=== PATIENT | female | born 1990 | race Caucasian/White ===

== ENCOUNTER 2016-09-30 06:37 | Emergency (ER) | payer BC, MEDICAID ==
[2016-09-30 06:46] VITALS: TEMP 98
[2016-09-30] MEDS ORDERED: predniSONE 50 MG TAB PO STA (07:25)
[2016-09-30] MEDS ORDERED: diphenhydrAMINE 50 MG/ML 1 ML VIAL IM STA (07:28)
--- NOTE | 2016-09-30 07:28 | ED ---
General Adult HPI - General Chief complaint: Skin/Abscess/Foreign Body Stated complaint: poss allergic reaction Time Seen by Provider: 09/30/16 07:00 Source: patient, RN notes reviewed Mode of arrival: ambulatory Limitations: no limitations - History of Present Illness Initial comments: This is a 26 year old female who presents emergency Department with a rash all over her legs abdomen chest back and even her scalp. Patient has no rash on her palms or soles. Patient states the rash is extremely itchy the rash is erythematous and mildly raised. Patient states she did not started any new medications or any new soaps or lotions or shampoos. Patient states she does not know where it could've come from one else in the house has. Patient states she's never had in the past per patient denies any fever or chills. - Related Data Previous Rx's Medication Instructions Recorded predniSONE 40 mg PO DAILY #8 tab 09/30/16 Allergies Allergy/AdvReac Type Severity Reaction Status Date / Time No Known Allergies Allergy Verified 09/30/16 06:46 Review of Systems ROS Statement: Those systems with pertinent positive or pertinent negative responses have been documented in the HPI. ROS Other: All systems not noted in ROS Statement are negative. Past Medical History Past Medical History: No Reported History History of Any Multi-Drug Resistant Organisms: None Reported Past Surgical History: Adenoidectomy, Ear Surgery Additional Past Surgical History / Comment(s): toe Past Psychological History: No Psychological Hx Reported Smoking Status: Never smoker Past Alcohol Use History: Rare Past Drug Use History: None Reported General Exam - General Exam Comments Initial Comments: GENERAL: Patient is well-developed and well-nourished. Patient is nontoxic and well- hydrated and is in mild distress. ENT: Neck is soft and supple. No significant lymphadenopathy is noted. Oropharynx is clear. Moist mucous membranes. Neck has full range of motion without eliciting any pain. EYES: The sclera were anicteric and conjunctiva were pink and moist. Extraocular movements were intact and pupils were equal round and reactive to light. Eyelids were unremarkable. PULMONARY: Unlabored respirations. Good breath sounds bilaterally. No audible rales rhonchi or wheezing was noted. CARDIOVASCULAR: There is a regular rate and rhythm without any murmurs gallops or rubs. ABDOMEN: Soft and nontender with normal bowel sounds. No palpable organomegaly was noted. There is no palpable pulsatile mass. SKIN: Patient has multiple solitary erythematous lesions that are slightly raised there are no pustules NEUROLOGIC: Patient is alert and oriented x3. Cranial nerves II through XII are grossly intact. Motor and sensory are also intact. Normal speech, volume and content. Symmetrical smile. MUSCULOSKELETAL: Normal extremities with adequate strength and full range of motion. No lower extremity swelling or edema. No calf tenderness. LYMPHATICS: No significant lymphadenopathy is noted PSYCHIATRIC: Normal psychiatric evaluation. Normal interpersonal interactions appears functionally intact in deals appropriately with others. No signs of depression. No signs of anxiety. Limitations: no limitations Course Vital Signs 09/30/16 06:43 Temperature 98.0 F Pulse Rate 93 Respiratory 18 Rate Blood Pressure 140/77 O2 Sat by Pulse 97 Oximetry Disposition Clinical Impression: Allergic reaction Disposition: HOME SELF-CARE Condition: Good Instructions: Allergies (ED) Prescriptions: predniSONE 40 mg PO DAILY #8 tab Referrals: Christelle Eldridge MD [Primary Care Provider] - 1-2 days
[2016-09-30 07:53] VITALS: BP 115/61; PULSE 71; RESP 16
== END 2016-09-30 07:56 | disposition home or self-care (01) ==
LOC: EC 06:37
DX: T78.40XA Allergy, unspecified, initial encounter (principal)
CPT/HCPCS: 99282; J7512

== ENCOUNTER → 2017-01-13 | Outpatient (CLI) | payer MEDICAID ==
--- NOTE | 2017-01-13 16:10 | US ---
EXAMINATION TYPE: US thyroid st tissue head/neck DATE OF EXAM: 01/13/2017 COMPARISON: NONE CLINICAL HISTORY: 26-year-old female Thyromegaly E01.0. Weight gain, neck swelling TECHNIQUE: Multiple sonographic images of the thyroid gland are obtained. FINDINGS: GLAND SIZE: Right Lobe: 5.2 x 1.4 x 1.9 cm Left Lobe: 5.7 x 1.2 x 1.7 cm Isthmus Thickness: 0.2 cm Overall homogeneous glandular parenchyma. NODULES RIGHT: # of nodules measured on right: 0 LEFT: # of nodules measured on left: 1 1. 1.2 X 0.7 x 0.9 cm solid ovoid nodule at the lower pole. This nodule is wider than tall and show s intranodular vascularity. Prior size: no previous ISTHMUS: # of nodules measured in the isthmus: 0 Bilateral neck scanned, no evidence of lymphadenopathy. IMPRESSION: 1. Thyromegaly. 2. Solitary 1.2 cm solid nodule in the left lower pole.
== END | disposition home or self-care (01) ==
LOC: RADUSWWP 15:00
PROVIDERS: ATTEND Internal Medicine
DX: E04.1 Nontoxic single thyroid nodule (principal)
CPT/HCPCS: 76536

== ENCOUNTER 2017-03-21 04:18 | Emergency (ER) | payer MEDICAID ==
[2017-03-21 04:29] VITALS: BP 126/70; PULSE 90; RESP 17; TEMP 97.6
[2017-03-21] MEDS ORDERED: IBUPROFEN 400 MG TAB PO STA (05:36)
[2017-03-21] MEDS ORDERED: PSEUDOEPHEDRINE 12HR 120 MG TABLET.ER PO STA (05:36)
[2017-03-21] MEDS ORDERED: Acetaminophen-Codeine 300-30mg TAB PO STA (05:39)
--- NOTE | 2017-03-21 05:53 | ED ---
ENT HPI - General Chief complaint: ENT Stated complaint: Lt Ear Pain Time Seen by Provider: 03/21/17 05:32 Source: patient Mode of arrival: ambulatory Limitations: no limitations - History of Present Illness Initial comments: This patient is a 26-year-old woman who presents to be evaluated for left ear pain. The patient states that she has had a few days of cough and congestion, and then was awakened around 3 AM by left ear pain. She describes it as constant, severe, aching, and she has not noted worsening or relieving factors. She has history of having tubes placed 3 or 4 times previously when she was younger. Patient denies fever, ear drainage, loss of hearing, headache or other symptoms. MD complaint: ear pain Onset/Timin -: hour(s) Location: L ear Severity: severe Quality: aching Consistency: constant Improves with: none Worsens with: none Associated Symptoms: cough - Related Data Home Medications Medication Instructions Recorded Confirmed Shreds Fat Burner 1 tab PO DAILY 09/30/16 09/30/16 Previous Rx's Medication Instructions Recorded predniSONE 40 mg PO DAILY #8 tab 09/30/16 Amoxicillin 875 mg PO Q12HR #14 tablet 03/21/17 Pseudoephedrine 12Hr [Sudafed 12 120 mg PO Q12H #14 tablet.er 03/21/17 Hour] Allergies Allergy/AdvReac Type Severity Reaction Status Date / Time No Known Allergies Allergy Verified 09/30/16 07:32 Review of Systems ROS Statement: Those systems with pertinent positive or pertinent negative responses have been documented in the HPI. ROS Other: All systems not noted in ROS Statement are negative. Constitutional: Denies: fever, chills Eyes: Denies: eye pain ENT: Reports: ear pain, congestion. Denies: throat pain, dental pain, hearing loss Respiratory: Reports: cough. Denies: dyspnea, wheezes Cardiovascular: Denies: chest pain Skin: Denies: rash Neurological: Denies: headache Past Medical History Past Medical History: No Reported History History of Any Multi-Drug Resistant Organisms: None Reported Past Surgical History: Adenoidectomy, Ear Surgery Additional Past Surgical History / Comment(s): toe Past Psychological History: No Psychological Hx Reported Smoking Status: Never smoker Past Alcohol Use History: Rare Past Drug Use History: None Reported General Exam Limitations: no limitations General appearance: alert, in no apparent distress Head exam: Present: atraumatic, normocephalic Eye exam: Present: normal appearance, PERRL, EOMI. Absent: scleral icterus, conjunctival injection ENT exam: Present: normal oropharynx, mucous membranes moist, normal external ear exam. Absent: TM's normal bilaterally (There is a clear effusion behind the left tympanic membrane, which is mildly injected.) Neck exam: Present: normal inspection, full ROM, lymphadenopathy. Absent: tenderness, meningismus Respiratory exam: Present: normal lung sounds bilaterally. Absent: respiratory distress, wheezes, rales, rhonchi Neurological exam: Present: alert Skin exam: Present: warm, dry, intact, normal color. Absent: rash Course Vital Signs 03/21/17 04:24 Temperature 97.6 F Pulse Rate 90 Respiratory 17 Rate Blood Pressure 126/70 O2 Sat by Pulse 100 Oximetry Disposition Clinical Impression: Otitis media Disposition: HOME SELF-CARE Condition: Good Instructions: Earache (ED) Prescriptions: Amoxicillin 875 mg PO Q12HR #14 tablet Pseudoephedrine 12Hr [Sudafed 12 Hour] 120 mg PO Q12H #14 tablet.er Referrals: Christelle Eldridge MD [Primary Care Provider] - 1-2 days
== END 2017-03-21 06:16 | disposition home or self-care (01) ==
LOC: EC 04:18
DX: H66.92 Otitis media, unspecified, left ear (principal); R05 Cough; Z79.899 Other long term (current) drug therapy
CPT/HCPCS: 99282

== ENCOUNTER 2018-07-05 08:10 | Emergency (ER) | payer MEDICAID ==
[2018-07-05] MEDS ORDERED: SODIUM CHLORIDE 0.9% 1,000 ML IV STA ×3 (08:24→10:53)
[2018-07-05] MEDS ORDERED: ONDANSETRON 4 MG/2 ML VIAL IVP STA ×2 (08:24→10:42)
[2018-07-05] MEDS ORDERED: KETOROLAC 30 MG/ML 1 ML VIAL IVP STA ×2 (08:25→14:25)
--- NOTE | 2018-07-05 08:44 | ED ---
Nausea/Vomiting/Diarrhea HPI - General Chief complaint: Nausea/Vomiting/Diarrhea Stated complaint: vomiting Time Seen by Provider: 07/05/18 08:15 Source: patient, RN notes reviewed Mode of arrival: ambulatory Limitations: no limitations - History of Present Illness Initial comments: This is a 27-year-old female who presents with complaints of nausea and vomiting with no diarrhea since about 11 PM last night. She states it occurred several hours after eating pizza from a local pizza parlor. She complains right upper quadrant abdominal pain. The pain is a dull 4/10 in severity. No fevers chills or sweats she does have some lightheadedness. She states she vomited at least once per hour since 11:00 last night. No dysuria no hematuria she does state that she recently was treated for bacterial vaginosis she had been on Flagyl for 2 days with Diflucan she was having some issues with that was changed to clindamycin and took her third dose yesterday. MD complaint: nausea, vomiting - Related Data Home Medications Medication Instructions Recorded Confirmed Aspirin/Acetaminophen/Caffeine 1 - 2 tab PO Q6H PRN 07/05/18 07/05/18 [Excedrin Migraine Caplet] Clindamycin HCl [Cleocin] 150 mg PO Q12H 07/05/18 07/05/18 Previous Rx's Medication Instructions Recorded Magnesium 200 mg PO AC-BID #14 tablet 07/05/18 Ondansetron [Zofran ODT] 4 mg PO Q8HR #12 tab 07/05/18 Allergies Allergy/AdvReac Type Severity Reaction Status Date / Time alcohol AdvReac Nausea & Verified 07/05/18 08:53 Vomiting metronidazole [From Flagyl] AdvReac Unknown Verified 07/05/18 08:53 Review of Systems ROS Statement: Those systems with pertinent positive or pertinent negative responses have been documented in the HPI. ROS Other: All systems not noted in ROS Statement are negative. Past Medical History Past Medical History: No Reported History History of Any Multi-Drug Resistant Organisms: None Reported Past Surgical History: Adenoidectomy, Ear Surgery Additional Past Surgical History / Comment(s): toe Past Psychological History: No Psychological Hx Reported Smoking Status: Never smoker Past Alcohol Use History: Rare Past Drug Use History: None Reported General Exam - General Exam Comments Initial Comments: this is a well-developed well-nourished awake alert oriented 3 female Limitations: no limitations General appearance: alert, in no apparent distress Head exam: Present: atraumatic, normocephalic, normal inspection Eye exam: Present: normal appearance, PERRL, EOMI. Absent: scleral icterus, conjunctival injection, periorbital swelling ENT exam: Present: mucous membranes dry Neck exam: Present: normal inspection. Absent: tenderness, meningismus, lymphadenopathy Respiratory exam: Present: normal lung sounds bilaterally. Absent: respiratory distress, wheezes, rales, rhonchi, stridor Cardiovascular Exam: Present: normal rhythm, tachycardia GI/Abdominal exam: Present: soft, tenderness (Mild epigastric right upper quadrant tenderness palpation no guarding rebound masses or bruits) Extremities exam: Present: normal inspection, full ROM, normal capillary refill. Absent: tenderness, pedal edema, joint swelling, calf tenderness Back exam: Present: normal inspection Neurological exam: Present: alert, oriented X3, CN II-XII intact Psychiatric exam: Present: normal affect, normal mood Skin exam: Present: warm, dry, intact, normal color. Absent: rash Course Vital Signs 07/05/18 07/05/18 08:11 10:57 Temperature 98.7 F Pulse Rate 133 H 105 H Respiratory 20 20 Rate Blood Pressure 138/71 122/74 O2 Sat by Pulse 97 99 Oximetry - Reevaluation(s) Reevaluation #1: 07/05/18 10:54 Patient states that with respect her abdominal pain is totally cleared up no abdominal pain is when she still nauseated however. She'll receive some more antinausea medication as well as IV fluids. Reevaluation #2: 07/05/18 11:31 Patient states she still nauseated in spite of the Zofran that was given a different medication will be attempted Medical Decision Making - Medical Decision Making The patient did require several different dosings of medications for the intractable nausea she presented with. She is finally feeling much improved lab work was unremarkable. She'll be discharged we did discuss this with her and h er family who was present. - Lab Data Result diagrams: 07/05/18 09:01 07/05/18 09:01 Lab Results 07/05/18 07/05/18 07/05/18 Range/Units 09:01 09:01 09:01 WBC 17.9 H (3.8-10.6) k/uL RBC 5.64 H (3.80-5.40) m/uL Hgb 15.8 (11.4-16.0) gm/dL Hct 46.8 H (34.0-46.0) % MCV 83.0 (80.0-100.0) fL MCH 28.1 (25.0-35.0) pg MCHC 33.8 (31.0-37.0) g/dL RDW 13.1 (11.5-15.5) % Plt Count 463 H (150-450) k/uL Neutrophils % 90 % Lymphocytes % 4 % Monocytes % 3 % Eosinophils % 1 % Basophils % 0 % Neutrophils # 16.1 H (1.3-7.7) k/uL Lymphocytes # 0.8 L (1.0-4.8) k/uL Monocytes # 0.6 (0-1.0) k/uL Eosinophils # 0.2 (0-0.7) k/uL Basophils # 0.1 (0-0.2) k/uL Sodium 138 (137-145) mmol/L Potassium 4.5 (3.5-5.1) mmol/L Chloride 105 (98-107) mmol/L Carbon Dioxide 20 L (22-30) mmol/L Anion Gap 13 mmol/L BUN 16 (7-17) mg/dL Creatinine 0.51 L (0.52-1.04) mg/dL Est GFR (CKD-EPI)AfAm >90 (>60 ml/min/1.73 sqM) Est GFR (CKD-EPI)NonAf >90 (>60 ml/min/1.73 sqM) Glucose 110 H (74-99) mg/dL Calcium 10.1 (8.4-10.2) mg/dL Magnesium 1.5 L (1.6-2.3) mg/dL Total Bilirubin 1.2 (0.2-1.3) mg/dL AST 34 (14-36) U/L ALT 42 (9-52) U/L Alkaline Phosphatase 118 (38-126) U/L Total Protein 7.9 (6.3-8.2) g/dL Albumin 4.6 (3.5-5.0) g/dL Amylase 58 (30-110) U/L Lipase 68 (23-300) U/L Urine Color Yellow Urine Appearance Clear (Clear) Urine pH 8.0 (5.0-8.0) Ur Specific [place] 1.019 (1.001-1.035) Urine Protein Trace H (Negative) Urine Glucose (UA) Negative (Negative) Urine Ketones Negative (Negative) Urine Blood Trace H (Negative) Urine Nitrite Negative (Negative) Urine Bilirubin Negative (Negative) Urine Urobilinogen <2.0 (<2.0) mg/dL Ur Leukocyte Esterase Negative (Negative) Urine RBC 5 (0-5) /hpf Urine WBC 2 (0-5) /hpf Ur Squamous Epith Cells 8 H (0-4) /hpf Urine Mucus Rare H (None) /hpf Urine HCG, Qual (Not Detectd) 07/05/18 Range/Units 09:01 WBC (3.8-10.6) k/uL RBC (3.80-5.40) m/uL Hgb (11.4-16.0) gm/dL Hct (34.0-46.0) % MCV (80.0-100.0) fL MCH (25.0-35.0) pg MCHC (31.0-37.0) g/dL RDW (11.5-15.5) % Plt Count (150-450) k/uL Neutrophils % % Lymphocytes % % Monocytes % % Eosinophils % % Basophils % % Neutrophils # (1.3-7.7) k/uL Lymphocytes # (1.0-4.8) k/uL Monocytes # (0-1.0) k/uL Eosinophils # (0-0.7) k/uL Basophils # (0-0.2) k/uL Sodium (137-145) mmol/L Potassium (3.5-5.1) mmol/L Chloride (98-107) mmol/L Carbon Dioxide (22-30) mmol/L Anion Gap mmol/L BUN (7-17) mg/dL Creatinine (0.52-1.04) mg/dL Est GFR (CKD-EPI)AfAm (>60 ml/min/1.73 sqM) Est GFR (CKD-EPI)NonAf (>60 ml/min/1.73 sqM) Glucose (74-99) mg/dL Calcium (8.4-10.2) mg/dL Magnesium (1.6-2.3) mg/dL Total Bilirubin (0.2-1.3) mg/dL AST (14-36) U/L ALT (9-52) U/L Alkaline Phosphatase (38-126) U/L Total Protein (6.3-8.2) g/dL Albumin (3.5-5.0) g/dL Amylase (30-110) U/L Lipase (23-300) U/L Urine Color Urine Appearance (Clear) Urine pH (5.0-8.0) Ur Specific [place] (1.001-1.035) Urine Protein (Negative) Urine Glucose (UA) (Negative) Urine Ketones (Negative) Urine Blood (Negative) Urine Nitrite (Negative) Urine Bilirubin (Negative) Urine Urobilinogen (<2.0) mg/dL Ur Leukocyte Esterase (Negative) Urine RBC (0-5) /hpf Urine WBC (0-5) /hpf Ur Squamous Epith Cells (0-4) /hpf Urine Mucus (None) /hpf Urine HCG, Qual Not Detected (Not Detectd) - Radiology Data Radiology results: report reviewed (Imaging was reviewed no acute findings.), image reviewed Disposition Clinical Impression: Acute gastritis, Intractable nausea and vomiting, Hypomagnesemia, Dehydration Disposition: HOME SELF-CARE Condition: Good Instructions (If sedation given, give patient instructions): Acute Nausea and Vomiting (ED), Dehydration (ED), Hypomagnesemia (ED) Prescriptions: Magnesium 200 mg PO AC-BID #14 tablet Ondansetron [Zofran ODT] 4 mg PO Q8HR #12 tab Is patient prescribed a controlled substance at d/c from ED?: No Referrals: Lniette Yarbrough DO [Primary Care Provider] - 1-2 days
[2018-07-05 09:28] LABS: Appearance,Urine Clear (Clear); Bilirubin,Urine Negative (Negative); Blood,Urine Trace (Negative); Color,Urine Yellow; Glucose,Urine (UA) Negative (Negative); Ketones,Urine Negative (Negative); Leukocyte Esterase,Urine Negative (Negative); Mucus,Urine Rare /hpf; Nitrite,Urine Negative (Negative); Protein,Urine Trace (Negative); RBC,Urine 5 /hpf (0-5); Specific Gravity,Urine 1.019 (1.001-1.035); Squamous Epithelial Cell,Urine 8 /hpf (0-4); Urobilinogen,Urine <2.0 mg/dL (<2.0)
[2018-07-05 09:31] LABS: Basophils # (A) 0.1 k/uL (0-0.2); Basophils % (A) 0 %; Eosinophils # (A) 0.2 k/uL (0-0.7); Eosinophils % (A) 1 %; HCT 46.8 % (34.0-46.0); HGB 15.8 gm/dL (11.4-16.0); Lymphocytes # (A) 0.8 k/uL (1.0-4.8); Lymphocytes % (A) 4 %; MCH 28.1 pg (25.0-35.0); MCHC 33.8 g/dL (31.0-37.0); Mean Platelet Volume 6.2; Monocytes # (A) 0.6 k/uL (0-1.0); Monocytes % (A) 3 %; Neutrophils # (A) 16.1 k/uL (1.3-7.7); Neutrophils % (A) 90 %; Platelet Count 463 k/uL (150-450); RBC 5.64 m/uL (3.80-5.40); RDW 13.1 % (11.5-15.5); WBC 17.9 k/uL (3.8-10.6)
[2018-07-05 09:40] LABS: ALT 42 U/L (9-52); AST 34 U/L (14-36); Albumin 4.6 g/dL (3.5-5.0); Alkaline Phosphatase 118 U/L (38-126); Amylase 58 U/L (30-110); Anion Gap 13 mmol/L; Blood Urea Nitrogen 16 mg/dL (7-17); Calcium 10.1 mg/dL (8.4-10.2); Carbon Dioxide 20 mmol/L (22-30); Chloride 105 mmol/L (98-107); Glucose 110 mg/dL (74-99); Lipase 68 U/L (23-300); Magnesium 1.5 mg/dL (1.6-2.3); Potassium 4.5 mmol/L (3.5-5.1); Sodium 138 mmol/L (137-145); Total Bilirubin 1.2 mg/dL (0.2-1.3); Total Protein 7.9 g/dL (6.3-8.2)
--- NOTE | 2018-07-05 09:45 | XR ---
Abdomen HISTORY: Right upper quadrant pain and nausea 2 views of the abdomen Bone mineralization is normal. No evident bowel obstruction or pneumoperitoneum. No pathologic calcif ication. Lung bases are clear. There is some retained fecal debris throughout the distribution of the transverse colon. IMPRESSION: Nonobstructive bowel gas pattern.
[2018-07-05] MEDS ORDERED: METOCLOPRAMIDE 5 MG/ML 2 ML VIAL IVP STA (11:31)
[2018-07-05] MEDS ORDERED: diphenhydrAMINE 50 MG/ML 1 ML VIAL IVP STA (12:51)
[2018-07-05] MEDS ORDERED: PROMETHAZINE INJ 25 MG in SODIUM CHLORIDE 0.9% 50 ML IVPB STA ×4 (12:51)
[2018-07-05 14:11] VITALS: BP 110/75
[2018-07-05] MEDS ORDERED: SODIUM CHLORIDE 0.9% 500 ML 500 ML IV STA (14:24)
--- NOTE | 2018-07-05 15:32 | XR ---
EXAMINATION TYPE: XR chest 2V DATE OF EXAM: 07/05/2018 COMPARISON: NONE HISTORY: Cough and shortness of breath TECHNIQUE: Frontal and lateral views of the chest are obtained. FINDINGS: There is no focal air space opacity, pleural effusion, or pneumothorax seen. The cardiac silhouette size is within normal limits. The osseous structures are intact. There are cardiac leads . IMPRESSION: No acute cardiopulmonary process.
[2018-07-05 15:48] VITALS: PULSE 112; RESP 16; TEMP 101.1
== END 2018-07-05 15:48 | disposition home or self-care (01) ==
LOC: EC 08:10
DX: K29.00 Acute gastritis without bleeding (principal); E83.42 Hypomagnesemia; E86.0 Dehydration; R00.0 Tachycardia, unspecified; Z91.048 Other nonmedicinal substance allergy status; Z88.1 Allergy status to other antibiotic agents
CPT/HCPCS: 36415; 80053; 82150; 83690; 83735; 85025; 81001; 81025; 87040; 87502; 71046; 74018; 99284; 96374; 96375 ×4; 96376 ×2; 96361 ×6; J1200; J2550; J2765; J2405; J1885

== ENCOUNTER → 2018-09-17 | Outpatient (CLI) | payer MEDICAID ==
[2018-09-17 17:52] LABS: HCT 39.6 % (34.0-46.0); HGB 13.5 gm/dL (11.4-16.0); MCH 28.9 pg (25.0-35.0); MCHC 34.1 g/dL (31.0-37.0); MCV 84.9 fL (80.0-100.0); Mean Platelet Volume 7.3; Platelet Count 394 k/uL (150-450); RBC 4.67 m/uL (3.80-5.40); RDW 13.7 % (11.5-15.5); WBC 14.9 k/uL (3.8-10.6)
[2018-09-17 18:07] LABS: Glucose 103 mg/dL (74-99)
[2018-09-18 04:23] LABS: Toxoplasma Antibody (IgG) <3.0 IU/mL (<7.2); Toxoplasma Antibody (IgM) <3.0 AU/mL (<8.0)
--- NOTE | 2018-09-18 10:03 | US ---
EXAMINATION TYPE: Transabdominal DATE OF EXAM: 09/17/2018 4:30 PM COMPARISON: NONE CLINICAL HISTORY: Z36 Confirm dates. EXAM PERFORMED: Transabdominal (TA) EXAM MEASUREMENTS: GESTATIONAL AGE / DATING Physician Established: not established) EDC: Dates by LMP: irregular periods) Dates by First Scan: no prior EDC: Dates by Current Scan for: (10 weeks/4 days) EDC: 04/11/2019 MATERNAL ANATOMY Uterus: 10.6 x 5.1 x 7.2 cm Right Ovary: 1.9 x 1.5 x 1.2 cm Left Ovary: 2.3 x 2.8 x 1.5 cm Post CDS / Adnexa: wnl Presence of free fluid: no Presence of corpus luteal cyst: no Presence of subchorionic bleed: no GESTATION / SURVEY CRL: 3.6 cm (10 weeks/4 days) MSD: 4.5 (10 weeks/3 days) Heart Rate: 143 bpm Rhythm: Normal IUP: Viable IUP Date of LMP: irregular periods Beta HcG (if available): na IMPRESSION: 1. Single intrauterine gestation estimated at 10 weeks 4 days gestation based on the crown-rump lengt h. Cardiac activity measures 143 bpm.
== END | disposition home or self-care (01) ==
LOC: RADUSWWP 16:10
PROVIDERS: ATTEND Obstetrics & Gynecology
DX: Z34.00 Encounter for supervision of normal first pregnancy, unspecified trimester (principal); Z36.89 Encounter for other specified antenatal screening
CPT/HCPCS: 76801; 82565; 82947; 85027; 86762; 86777; 86778; 86780; 86850; 86900; 86901; 87340

== ENCOUNTER → 2018-11-20 | Outpatient (CLI) | payer MEDICAID ==
--- NOTE | 2018-11-20 14:06 | US ---
EXAMINATION TYPE: US OB anatomy transabd DATE OF EXAM: 11/20/2018 COMPARISON: NONE HISTORY: O36.62X0 large for dates LGA TECHNIQUE: Transabdominal (TA) EXAM MEASUREMENTS: GESTATIONAL AGE / DATING Physician Established: (19 weeks/5 days) EDC: 04/11/19 Dates by LMP: unknown Dates by First Scan: (19 weeks/5 days) EDC: 04/11/19 Dates by Current Scan for: (19 weeks/5 days) EDC: 04/11/19 SURVEY IUP: Single PLACENTA: Anterior PREVIA: No previa KARLY: 14.7 cm Normal CERVICAL LENGTH (transabdominal: norm > 3.0cm): 3.5 cm BIOMETRY PRESENTATION: Breech LIE: Longitudinal BPD: 4.86 cm 20 weeks / 5 days HC: 17.27 cm 19 weeks / 6 days AC: 14.58 cm 19 weeks / 6 days FL: 3.08 cm 19 weeks / 4 days ESTIMATED WEIGHT IN GRAMS: 311.68 grams ESTIMATED WEIGHT IN LBS/OZ: 0 lbs. 11 oz. WEIGHT PERCENTAGE BASED ON ESTABLISHED DATE: 48.3 % HC/AC: 1.18cm Normal FL/AC: 21.10 cm Normal HEART RATE: 135 bpm RHYTHM: Normal ANATOMY SEEN (within normal limits): * Lateral Vent (< 1 cm) 0.6 cm * Cisterna Magna (< 1.1 cm) 0.6 cm * Nuchal Fold (< 0.6 cm) 0.4 cm * Cerebellum (varies with age) 1.6 cm Choroid Plexus (bilateral) Midline Falx Cavus Septi Pellucidi Stomach Situs Diaphragm Kidneys (bilateral) Bladder Cord Insert Three Vessel Cord Longitudinal Spine Transverse Spine Arms (bilateral) Legs (bilateral) ANATOMY NOT SEEN: Due to position. Four Chamber Heart Outflow tracts: LVOT/RVOT Nose / Lips MATERNAL WALL MEASUREMENT: 5.6 cm from skin to anterior uterine wall (if exam limited due to body bartholomew bitus). Patient scheduled for an OB callback 12/04/18 at 3pm IMPRESSION: Single viable intrauterine as noted above. Patient to return for additional imaging December 04 Limited anatomy. presentation is currently breech.
== END | disposition home or self-care (01) ==
LOC: RADUSWWP 09:54
PROVIDERS: ATTEND Obstetrics & Gynecology
DX: O32.1XX0 Maternal care for breech presentation, not applicable or unspecified (principal); Z3A.19 19 weeks gestation of pregnancy
CPT/HCPCS: 76811

== ENCOUNTER → 2018-12-04 | Outpatient (CLI) | payer MEDICAID ==
--- NOTE | 2018-12-04 15:52 | US ---
EXAMINATION TYPE: US OB Call Back DATE OF EXAM: 12/04/2018 COMPARISON: 11/20/2018 CLINICAL HISTORY: O36.62X0 LARGE FOR DATES. Callback for heart and nose/lips GESTATIONAL AGE / DATING Dates by Initial Survey Scan: (21 weeks/5 days) EDC: 04/11/2019 HEART RATE: 141 bpm RHYTHM: Normal ANATOMY SEEN (second anatomic survey look): 4 chamber heart and Outflow tracts:? LVOT/RVOT- intracardiac echogenic focus seen in left vent= 0.3 c m Nose / Lips: wnl as visualized MATERNAL WALL MEASUREMENT: 4.0 cm from skin to anterior uterine wall (if exam limited due to body bartholomew bitus). IMPRESSION: Four-chamber heart, outflow tracts, and patient's nose and lips are visualized however th ere is an intracardiac echogenic focus seen in the left ventricle measuring 0.3 cm. This can be an in cidental finding although this can also be associated with congenital anomalies.
[2018-12-07 11:33] LABS: Alpha Fetoprotein 72.7 ng/mL; Alpha Fetoprotein (M.O.M) 1.13; B-HCG (M.O.M.) 1.16; Gestational Age (days) 5; Human Chorionic Gonadotropin 17.5 IU/mL; Inhibin A (M.O.M.) 1.13; Interpretation SeeBelow; Maternal Age at EDD (Yrs) 27; Smoker No; Unconjugated Estriol (M.O.M.) 1.25
== END | disposition home or self-care (01) ==
LOC: RADUSWWP 15:11
PROVIDERS: ATTEND Obstetrics & Gynecology
DX: Z34.02 Encounter for supervision of normal first pregnancy, second trimester (principal)
CPT/HCPCS: 82105; 82677; 84702; 86336

== ENCOUNTER → 2019-01-05 | Outpatient (CLI) | payer MEDICAID ==
[2019-01-05 12:03] LABS: HCT 36.3 % (34.0-46.0); HGB 12.5 gm/dL (11.4-16.0); MCH 29.5 pg (25.0-35.0); MCHC 34.4 g/dL (31.0-37.0); MCV 85.8 fL (80.0-100.0); Platelet Count 402 k/uL (150-450); RBC 4.23 m/uL (3.80-5.40); RDW 15.1 % (11.5-15.5); WBC 17.5 k/uL (3.8-10.6)
== END | disposition home or self-care (01) ==
LOC: LABWHC1 10:28
PROVIDERS: ATTEND Obstetrics & Gynecology
DX: Z34.02 Encounter for supervision of normal first pregnancy, second trimester (principal); Z3A.00 Weeks of gestation of pregnancy not specified
CPT/HCPCS: 36415; 82950; 85027

== ENCOUNTER → 2019-02-16 | Outpatient (CLI) | payer MEDICAID ==
--- NOTE | 2019-02-16 13:12 | US ---
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, not previously fou nd here, 1 TECHNIQUE: Transabdominal (TA) GESTATIONAL AGE / DATING Physician Established: (32 weeks/2 days) EDC: 04/11/2019 Dates by LMP: Unknown Dates by First Scan: (32 weeks/2 days) EDC: 04/11/2019 Dates by Current Scan: (31 weeks/6 days) EDC: 04/14/2019 SURVEY IUP: Single PLACENTA: Anterior PREVIA: No Previa KARLY: 15.1 cm Normal CERVICAL LENGTH (transabdominal: norm > 3.0cm): 3.1 cm BIOMETRY PRESENTATION: Vertex LIE: Longitudinal BPD: 8.4 cm 33 weeks / 4 days HC: 29.9 cm 33 weeks / 1 days AC: 28.4 cm 32 weeks / 3 days FL: 5.9 cm 30 weeks / 5 days ESTIMATED WEIGHT IN GRAMS: 1903 grams ESTIMATED WEIGHT IN LBS/OZ: 4 lbs. 3 oz. WEIGHT PERCENTAGE BASED ON ESTABLISHED DATES: 34% HC/AC: 1.05 Normal FL/AC: 20.71 Normal HEART RATE: 128 bpm RHYTHM: Normal MATERNAL WALL MEASUREMENT: 5.5 cm from skin to anterior uterine wall (if exam limited due to body hab itus). IMPRESSION: 1. Marginal cord insertion is demonstrated. The placenta is not low-lying. 2. The previously seen echogenic intracardiac focus is not imaged. 3. Single live intrauterine with a calculated age of 31 weeks and 6 days and estimated date of delivery of 04/14/2019 is concordant with menstrual age.
== END | disposition home or self-care (01) ==
LOC: RADUSWWP 12:09
PROVIDERS: ATTEND Obstetrics & Gynecology
DX: O43.123 Velamentous insertion of umbilical cord, third trimester (principal); Z3A.31 31 weeks gestation of pregnancy
CPT/HCPCS: 76805

== ENCOUNTER → 2019-03-09 | Outpatient (CLI) | payer MEDICAID ==
--- NOTE | 2019-03-09 17:06 | US ---
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 cord insertion TECHNIQUE: Transabdominal (TA) GESTATIONAL AGE / DATING Physician Established: (35 weeks/2 days) EDC: 04/11/19 Dates by LMP: unknown Dates by First Scan: (35 weeks/2 days) EDC: 04/11/19 Dates by Current Scan: (35 weeks/1 days) EDC: 04/12/19 SURVEY IUP: Single PLACENTA: Anterior PREVIA: No Previa KARLY: 13.3 cm Normal CERVICAL LENGTH (transabdominal: norm > 3.0cm): 3.2 cm BIOMETRY PRESENTATION: Vertex LIE: Longitudinal BPD: 8.8 cm 35 weeks / 4 days HC: 31.5 cm 35 weeks / 3 days AC: 31.5 cm 35 weeks / 4 days FL: 6.6 cm 34 weeks / 0 days ESTIMATED WEIGHT IN GRAMS: 2581 grams ESTIMATED WEIGHT IN LBS/OZ: 5 lbs. 11 oz. WEIGHT PERCENTAGE BASED ON ESTABLISHED DATES: 41% HC/AC: 1.00 Normal FL/AC: 21% Normal HEART RATE: 143 bpm RHYTHM: Normal MATERNAL WALL MEASUREMENT: 5.0 cm from skin to anterior uterine wall (if exam limited due to body hab itus). Due to gestational age, limitations noted today, Velamentous cord insertion noted as on prior exam IMPRESSION: Velamentous cord insertion again noted. Single live intrauterine has a current sonographic age of 35 weeks and 1 day and estimated date of delivery of 04/12/2019, concordant with robby cancino established dates.
== END ==
LOC: RADUSWWP 15:53
PROVIDERS: ATTEND Obstetrics & Gynecology
DX: O43.193 Other malformation of placenta, third trimester (principal); Z3A.35 35 weeks gestation of pregnancy
CPT/HCPCS: 76805

== ENCOUNTER 2019-03-13 14:44 | Outpatient (CLI) | payer MEDICAID | END 2019-03-13 15:45 | disposition home or self-care (01) | LOC: FBPOP 14:44 | PROVIDERS: ATTEND Obstetrics & Gynecology | DX: O43.129 Velamentous insertion of umbilical cord, unspecified trimester (principal); Z3A.00 Weeks of gestation of pregnancy not specified | CPT/HCPCS: 59025 ==

== ENCOUNTER 2019-03-16 07:04 | Outpatient (CLI) | payer MEDICAID, BC | END 2019-03-16 08:22 | disposition home or self-care (01) | LOC: FBPOP 07:04 | PROVIDERS: ATTEND Obstetrics & Gynecology | DX: O43.129 Velamentous insertion of umbilical cord, unspecified trimester (principal); Z3A.00 Weeks of gestation of pregnancy not specified | CPT/HCPCS: 59025 ==

== ENCOUNTER 2019-03-21 07:03 | Outpatient (CLI) | payer MEDICAID, BC | END 2019-03-21 07:48 | disposition home or self-care (01) | LOC: FBPOP 07:03 | PROVIDERS: ATTEND Obstetrics & Gynecology | DX: O43.123 Velamentous insertion of umbilical cord, third trimester (principal); Z3A.37 37 weeks gestation of pregnancy | CPT/HCPCS: 59025 ==

== ENCOUNTER 2019-03-28 11:34 | Outpatient (CLI) | payer MEDICAID, BC ==
[2019-03-28 12:29] VITALS: BP 134/82; PULSE 98; RESP 16; TEMP 97.6
--- NOTE | 2019-04-01 05:44 | P.MSEPDOC ---
Presenting Problems - Arrival Data Date of Arrival on Unit: 03/28/19 Time of Arrival on Unit: 11:34 Mode of Transport: Ambulatory - Complaint OB-Reason for Admission/Chief Complaint: Possible Onset of Labor, NST Medical History - Information : 1 Para: 0 Term: 0 : 0 Abortions: Spontaneous or Elective: 0 Number of Living Children: 0 - Gestational Age Gestational Age by KATY (wks/days): 38 Weeks and 0 Days - History Comment: velamentous cord Review of Systems - Review of Systems Constitutional: No problems Breast: No problems ENT: No problems Cardiovascular: No problems Respiratory: No problems Gastrointestinal: No problems Genitourinary: No problems Musculoskeletal: No problems Neurological: No problems Skin: No problems Vital Signs - Temperature Temperature: 97.6 F Temperature Source: Temporal Artery Scan - Pulse Right Sitting Pulse Rate: 98 Pulse Assessment Method: Automatic Cuff - Respirations Respiratory Rate: 16 Oxygen Delivery Method: Room Air O2 Sat by Pulse Oximetry: 99 - Blood Pressure Right Arm Blood Pressure: 134/82 Blood Pressure Mean: 99 Blood Pressure Source: Automatic Cuff Medical Screen Scoring (Pre) - Cervical Exam Dilation: 1-3 cm = 1 Effacement: Exam Deferred Membranes: Intact - Uterine Contractions Frequency: > 5 minutes apart = 1 Duration: > 40 seconds = 2 Intensity: N/A - Maternal Vital Signs Maternal Temperature: N/A Maternal Blood Pressure: N/A Signs of Preeclampsia: N/A Maternal Respirations: N/A - Maternal Trauma Maternal Trauma: N/A - Assessment - Baby A Baseline FHR: 140 Heart Rate - NICHD Category: Category I (Normal) = 0 NST: Reactive Position: N/A Station: N/A - Total Score - Baby A Total Score - Baby A: 4 - Total Score - Baby B Total Score - Baby B: 4 - Total Score - Baby C Total Score - Baby C: 4 - Level of Risk - Baby A Level of Risk - Baby A: Low (0-5) - Level of Risk - Baby B Level of Risk - Baby B: Low (0-5) - Level of Risk - Baby C Level of Risk - Baby C: Low (0-5) Physician Notification (Pre) - Physician Notified Physician Notified Date: 03/28/19 Physician Notified Time: : New Order Received: Yes (d/c home) Disposition - Disposition OB Disposition: Discharge to home, Written follow up instructions reviewed Discharge Date: 03/28/19 Discharge Time: 12:20 I agree with the RN Medical Screening Exam: Yes Risk & Benefit of care provided described in d/c instruction: Yes Diagnosis: FALSE LABOR BEFORE 37 COMPLETED WEEKS OF GEST, THIRD TRI
== END 2019-03-28 12:20 | disposition home or self-care (01) ==
LOC: FBPOP 11:34
PROVIDERS: ATTEND Obstetrics & Gynecology
DX: O47.1 False labor at or after 37 completed weeks of gestation (principal); Z3A.38 38 weeks gestation of pregnancy
CPT/HCPCS: 59025; 99213

== ENCOUNTER 2019-04-05 11:59 | Inpatient (IN) | payer BC, MEDICAID ==
[2019-04-05] MEDS ORDERED: OXYTOCIN 10 UNIT/ML 1 ML VIAL IM PRN (14:25)
[2019-04-05] MEDS ORDERED: AMPICILLIN 2,000 MG in SODIUM CHLORIDE 0.9% 100 ML IVPB STA (14:25)
[2019-04-05] MEDS ORDERED: METHYLERGONOVINE 0.2 MG/ML 1 ML AMP IM PRN (14:25)
[2019-04-05] MEDS ORDERED: LIDOCAINE 0.5% (PF) 5 MG/ML (50 ML SDV) SQ PRN (14:25)
[2019-04-05] MEDS ORDERED: TERBUTALINE 1 MG/ML VIAL SQ PRN (14:25)
[2019-04-05] MEDS ORDERED: CARBOPROST TROMETHAMINE 250 MCG/ML 1 ML AMP IM PRN (14:25)
[2019-04-05] MEDS ORDERED: OXYTOCIN 30 UNITS/500 ML NS 30 UNIT in SALINE 1 500ML.BAG IV SCH (14:30)
[2019-04-05] MEDS: LACTATED RINGERS 1,000 ML IV SCH ×2 (15:21→21:22)
[2019-04-05 15:22] LABS: Basophils % (A) 0 %; Eosinophils # (A) 0.1 k/uL (0-0.7); Eosinophils % (A) 1 %; HCT 38.3 % (34.0-46.0); HGB 13.4 gm/dL (11.4-16.0); Lymphocytes # (A) 2.6 k/uL (1.0-4.8); Lymphocytes % (A) 17 %; MCV 82.9 fL (80.0-100.0); Mean Platelet Volume 8.2; Monocytes # (A) 0.5 k/uL (0-1.0); Monocytes % (A) 3 %; Neutrophils # (A) 12.4 k/uL (1.3-7.7); Neutrophils % (A) 79 %; Platelet Count 362 k/uL (150-450); RBC 4.62 m/uL (3.80-5.40); RDW 14.4 % (11.5-15.5); WBC 15.8 k/uL (3.8-10.6)
[2019-04-05] MEDS ORDERED: fentaNYL (PF) 50 MCG/ML 5 ML AMP ONE (17:27)
[2019-04-05] MEDS ORDERED: ROPIVACAINE 5MG/ML 20ML VIAL ONE (17:27)
[2019-04-05] MEDS ORDERED: SODIUM CHLORIDE 0.9% 100 ML BAG ONE (17:27)
[2019-04-05] MEDS: AMPICILLIN 1,000 MG in SODIUM CHLORIDE 0.9% 50 ML IVPB SCH ×2 (19:17→23:13)
--- NOTE | 2019-04-05 19:33 | P.HPOB ---
History of Present Illness H&P Date: 04/05/19 Chief Complaint: Contractions This is a 28-year-old female 1 para 0 with an estimated date of confinement of 04/11/2019, estimated gestational age of 39-1/7 weeks, who presents to labor and delivery with complaints of contractions since approximately 10 AM this morning. Upon arrival to triage, she was noted to be 2 cm. She did make change control coordinator an hour's time to 4 cm. She denied any rupture of membranes. care has been with Dr. Miller. course was, located by a velamentous cord insertion. She also had an EIF that did resolve. labs: GC/chlamydia-negative Random glucose-103 Hemoglobin-13.5 Hepatitis B surface antigen-negative nonreactive Syphilis antibody-nonreactive Rubella-immune Toxoplasma screen-negative Blood type-A+ Antibody screen-negative Obstetrical ultrasound-normal anatomy other then EIF noted, velamentous cord ins ertion One hour Glucola-125 Group B streptococcus-positive Obstetrical history: . Social history: She is . She is working at the hospital. Review of Systems Constitutional: Denies chills, Denies fever Eyes: denies blurred vision, denies pain Ears, nose, mouth and throat: Denies headache, Denies sore throat Cardiovascular: Denies chest pain, Denies shortness of breath Respiratory: Denies cough Gastrointestinal: Reports abdominal pain (Regular contractions), Denies diarrhea, Denies nausea, Denies vomiting Genitourinary: Reports pelvic pain, Reports Musculoskeletal: Reports low back pain Integumentary: Denies pruritus, Denies rash Neurological: Denies numbness, Denies weakness Psychiatric: Reports anxiety, Denies depression Past Medical History Past Medical History: No Reported History History of Any Multi-Drug Resistant Organisms: None Reported Past Surgical History: Adenoidectomy, Ear Surgery Additional Past Surgical History / Comment(s): toe Past Psychological History: No Psychological Hx Reported Smoking Status: Never smoker Past Alcohol Use History: None Reported, Rare Past Drug Use History: None Reported - Past Family History Father Family Medical History: Hypertension Medications and Allergies Home Medications Medication Instructions Recorded Confirmed Type Pnv No.95/Ferrous Fum/Folic AC 1 tab PO DAILY 03/13/19 04/05/19 History [ Multivitamin Tablet] Allergies Allergy/AdvReac Type Severity Reaction Status Date / Time alcohol AdvReac Nausea & Verified 04/05/19 12:18 Vomiting metronidazole [From Flagyl] AdvReac Unknown Verified 04/05/19 12:18 Exam Osteopathic Statement: *. No significant issues noted on an osteopathic structural exam other than those noted in the History and Physical/Consult. Vital Signs Temp Pulse Resp BP 04/05/19 14:25 96.5 F L 94 20 128/78 04/05/19 11:59 96.5 F L 94 20 128/78 Intake and Output 04/05/19 04/05/19 04/05/19 06:59 14:59 22:59 Other: Weight 103.419 kg HEENT: Within normal limits Heart: Regular rate and rhythm Lungs: Clear to auscultation bilaterally Abdomen: Cervix: Is 4 cm 100%/-2 station with intact membranes on admission. heart tones: Reactive with category 1 tracing. Contractions: Every 2-3 minutes Extremities: Negative Homans Results Result Diagrams: 04/05/19 14:45 Abnormal Lab Results - Last 24 Hours (Table) 04/05/19 Range/Units 14:45 WBC 15.8 H (3.8-10.6) k/uL Neutrophils # 12.4 H (1.3-7.7) k/uL Assessment and Plan (1) 39 weeks gestation of Current Visit: No Status: Acute Code(s): Z3A.39 - 39 WEEKS GESTATION OF SNOMED Code(s): 92984287 (2) Group B streptococcal carriage complicating Current Visit: No Status: Acute Code(s): O99.820 - STREPTOCOCCUS B CARRIER STATE COMPLICATING SNOMED Code(s): 870227267261032 (3) Velamentous insertion of umbilical cord Current Visit: No Status: Acute Code(s): O43.129 - VELAMENTOUS INSERTION OF UMBILICAL CORD, UNSP TRIMESTER SNOMED Code(s): 83288973 Plan: Admission for active labor. Epidural anesthesia if desired. Antibiotic prophylaxis for group B streptococcus. Expectant management.
--- NOTE | 2019-04-05 23:27 | P.PROBDLV ---
Vaginal Delivery Note - . Vaginal Delivery Note: The patient progressed to complete dilation after spontaneous rupture membranes with clear fluid noted. She did have oxytocin augmentation when she reached approximate 9-1/2 cm. She also had epidural anesthesia. His reaching complete, she began pushing. Infant's head came to a crown. With one further push, the 's head delivered across the perineum followed by the anterior shoulder. With one further push, the remainder the infant easily delivered and the infant was placed on mother's abdomen. Nose and mouth were bulb suctioned. Cord was clamped and cut. was then taken to warmer for evaluation. A viable male was noted with scores of 8 at 1 minute and 9 at 5 minutes. Infant weight was 7 lbs. 9 oz. Placenta delivered shortly thereafter, intact, with a three-vessel cord. Marginal cord insertion was noted. Uterus did contract after oxytocin was given and uterine massage was carried out. Inspection of the perineum revealed a second-degree perineal laceration. This area was anesthetized with 1% lidocaine and then sutured with 3-0 and 2-0 Vicryl suture in the usual multilayer fashion. Estimated blood loss is approximately 150 mL's. Both mother and infant are in stable condition.
[2019-04-05] MEDS ORDERED: diphenhydrAMINE 25 MG CAP PO PRN (23:38)
[2019-04-05] MEDS ORDERED: WITCH HAZEL 1 EACH MED..PAD TOPICAL PRN (23:38)
[2019-04-05] MEDS ORDERED: diphenhydrAMINE 50 MG/ML 1 ML VIAL IVP PRN ×2 (23:38)
[2019-04-05] MEDS ORDERED: OXYTOCIN 20 UNITS/1000 ML NS 1,000 ML IV SCH (23:38)
[2019-04-05] MEDS ORDERED: SIMETHICONE 80 MG CHEWABLE PO PRN (23:38)
[2019-04-05] MEDS ORDERED: BENZOCAINE/MENTHOL SPRAY 1 GM/SPRAY AEROSOL TOPICAL PRN (23:38)
[2019-04-05] MEDS ORDERED: ZOLPIDEM 5 MG TAB PO PRN (23:38)
[2019-04-05] MEDS ORDERED: diphenhydrAMINE 50 MG CAP PO PRN (23:38)
[2019-04-05] MEDS ORDERED: HYDROCORTISONE 2.5% RECTAL CREAM 30 GM TUBE RECTAL PRN (23:38)
[2019-04-05] MEDS ORDERED: ACETAMINOPHEN TAB 325 MG TAB PO PRN (23:38)
[2019-04-05] MEDS ORDERED: LANOLIN CREAM 5 GM TUBE TOPICAL PRN (23:38)
[2019-04-05] MEDS: IBUPROFEN 600 MG TAB PO PRN (23:57)
--- NOTE | 2019-04-06 06:32 | P.PNOBGVD ---
Subjective - Subjective Patient reports: Reports appetite normal, Reports voiding normally, Reports pain well controlled, Reports ambulating normally : doing well Objective - Latest Vital Signs Latest vital signs: Vital Signs Temp Pulse Resp BP Pulse Ox 04/06/19 04:00 98.5 F 80 14 123/68 100 04/06/19 01:18 97.3 F L 107 H 14 142/67 04/06/19 00:48 97.3 F L 104 H 14 135/63 04/06/19 00:18 97.9 F 109 H 18 140/65 04/06/19 00:03 116 H 16 141/82 04/05/19 23:48 98.3 F 115 H 16 140/71 04/05/19 23:33 122 H 16 138/68 04/05/19 23:18 98.5 F 125 H 16 139/71 04/05/19 14:25 96.5 F L 94 20 128/78 04/05/19 11:59 96.5 F L 94 20 128/78 Intake and Output 04/05/19 04/05/19 04/06/19 14:59 22:59 06:59 Intake Total 1000 Output Total 250 50 Balance -250 950 Intake: Intake, IV Titration 1000 Amount Oxytocin 20 Units/1000 ml 1000 Ns 1,000 ml @ Per Protocol IV .Q0M [facility] Rx#: [id number] Output: Urine 50 50 Emesis 200 Other: # Voids 1 Weight 103.419 kg - Exam Lungs: bilateral: normal Chest: Normal S1, Normal S2 Extremities: Present: normal Abdomen: Present: normal appearance, soft Uterus: Present: normal, firm - Labs Labs: Abnormal Lab Results - Last 24 Hours (Table) 04/05/19 Range/Units 14:45 WBC 15.8 H (3.8-10.6) k/uL Neutrophils # 12.4 H (1.3-7.7) k/uL Assessment and Plan Assessment: day #1. Patient is resting without new complaints. Vital signs are stable and she is afebrile. Uterus is firm nontender and she is having normal lochia. My impression this is a normal course. Plan is to continue routine care discharge home tomorrow (1) Normal vaginal delivery Current Visit: Yes Status: Acute Code(s): O80 - ENCOUNTER FOR FULL-TERM UNCOMPLICATED DELIVERY SNOMED Code(s): 95634828
[2019-04-06] MEDS: SENNOSIDES-DOCUSATE SODIUM 1 EACH TAB PO SCH ×2 (07:47→19:55)
[2019-04-06 08:06] LABS: Basophils % (A) 0 %; Eosinophils % (A) 0 %; HGB 11.2 gm/dL (11.4-16.0); Lymphocytes # (A) 2.9 k/uL (1.0-4.8); Lymphocytes % (A) 14 %; MCH 29.6 pg (25.0-35.0); MCHC 34.9 g/dL (31.0-37.0); MCV 84.7 fL (80.0-100.0); Mean Platelet Volume 7.6; Monocytes # (A) 0.9 k/uL (0-1.0); Monocytes % (A) 5 %; Neutrophils # (A) 16.3 k/uL (1.3-7.7); Neutrophils % (A) 80 %; Platelet Count 331 k/uL (150-450); RBC 3.78 m/uL (3.80-5.40); RDW 14.5 % (11.5-15.5); WBC 20.4 k/uL (3.8-10.6)
[2019-04-06] MEDS ORDERED: PRENATAL VIT-IRON-FOLIC ACID 1 EACH CAP PO SCH (09:00)
--- NOTE | 2019-04-06 10:18 | P.PN ---
Progress Note - Text 04/06 640am 78-year-old female status post with spinal anesthetic patient also had Duramorph injected along with a spinal. Patient has had poor pain control with a VAS of 9 this morning requiring oral medications. Complains of pruritus is getting better. Patient to continue with oral pain meds
--- NOTE | 2019-04-06 10:26 | P.MSEPDOC ---
Presenting Problems - Arrival Data Date of Arrival on Unit: 04/05/19 Time of Arrival on Unit: 14:10 Mode of Transport: Ambulatory - Complaint OB-Reason for Admission/Chief Complaint: Possible Onset of Labor Medical History - Information : 1 Para: 0 Term: 0 : 0 Abortions: Spontaneous or Elective: 0 Number of Living Children: 0 - Gestational Age Gestational Age by KATY (wks/days): 40 Weeks and 0 Days Review of Systems - Review of Systems Constitutional: No problems Breast: No problems ENT: No problems Cardiovascular: No problems Respiratory: No problems Gastrointestinal: No problems Genitourinary: No problems Musculoskeletal: No problems Neurological: No problems Skin: No problems Vital Signs - Temperature Temperature: 98.3 F Temperature Source: Axillary - Pulse Right Brachial Pulse Rate: 87 Pulse Assessment Method: Automatic Cuff - Respirations Respiratory Rate: 18 Oxygen Delivery Method: Room Air - Blood Pressure Right Arm Blood Pressure: 130/74 Blood Pressure Mean: 92 Blood Pressure Source: Automatic Cuff Medical Screen Scoring (Pre) - Cervical Exam Dilation: 1-3 cm = 1 Effacement: More than 50% = 2 Membranes: Intact - Uterine Contractions Frequency: > or = 36 weeks =2 Duration: > 40 seconds = 2 Intensity: N/A - Maternal Vital Signs Maternal Temperature: N/A Maternal Blood Pressure: N/A Signs of Preeclampsia: Headache = 1 Maternal Respirations: N/A - Maternal Trauma Maternal Trauma: N/A - Assessment - Baby A Baseline FHR: 130 Heart Rate - NICHD Category: Category I (Normal) = 0 NST: Reactive Position: N/A - Total Score - Baby A Total Score - Baby A: 8 - Total Score - Baby B Total Score - Baby B: 8 - Total Score - Baby C Total Score - Baby C: 8 - Level of Risk - Baby A Level of Risk - Baby A: Medium (6-9) - Level of Risk - Baby B Level of Risk - Baby B: Medium (6-9) - Level of Risk - Baby C Level of Risk - Baby C: Medium (6-9) Physician Notification (Pre) - Physician Notified Physician Notified Date: 04/05/19 Physician Notified Time: 13:20 - Notification Comment Comment: pt admitted for labor Disposition - Disposition OB Disposition: Admit I agree with the RN Medical Screening Exam: Yes Risk & Benefit of care provided described in d/c instruction: Yes Diagnosis: ENCOUNTER FOR FULL-TERM UNCOMPLICATED DELIVERY
[2019-04-06] MEDS: IBUPROFEN 600 MG TAB PO PRN ×2 (11:01→19:55)
--- NOTE | 2019-04-07 06:38 | P.PNOBGVD ---
Subjective - Subjective Patient reports: Reports appetite normal, Reports voiding normally, Reports pain well controlled, Reports ambulating normally : doing well Objective - Latest Vital Signs Latest vital signs: Vital Signs Temp Pulse Resp BP Pulse Ox 04/07/19 00:00 98.1 F 86 16 126/76 100 04/06/19 16:00 98.4 F 80 16 115/66 04/06/19 12:00 97.6 F 88 15 121/70 04/06/19 10:26 98.3 F 87 18 130/74 04/06/19 08:00 98.3 F 87 18 130/74 - Exam Lungs: bilateral: normal Chest: Normal S1, Normal S2 Extremities: Present: normal Abdomen: Present: normal appearance, soft Uterus: Present: normal, firm - Labs Labs: Abnormal Lab Results - Last 24 Hours (Table) 04/06/19 Range/Units 06:44 WBC 20.4 H (3.8-10.6) k/uL RBC 3.78 L (3.80-5.40) m/uL Hgb 11.2 L (11.4-16.0) gm/dL Hct 32.0 L (34.0-46.0) % Neutrophils # 16.3 H (1.3-7.7) k/uL Assessment and Plan Assessment: day #2. Patient is resting without complaints and wishes to go home. Vital signs are stable she is afebrile. Uterus is firm nontender she's having normal lochia. My impression this is a normal course. Plan is to continue routine care discharge home later today (1) Normal vaginal delivery Current Visit: Yes Status: Acute Code(s): O80 - ENCOUNTER FOR FULL-TERM UNCOMPLICATED DELIVERY SNOMED Code(s): 70357197
--- NOTE | 2019-04-07 06:40 | P.DS ---
Providers Date of admission: 04/05/19 14:07 Expected date of discharge: 04/07/19 Attending physician: Phil Miller Primary care physician: Stated None - Discharge Diagnosis(es) (1) Normal vaginal delivery Current Visit: Yes Status: Acute Hospital Course: Please see dictated H&P for intimate details of this patient's admission. Brief summary this pleasant 28-year-old 1 para 0 female 39 weeks and one sevenths who presents to labor and delivery in active labor. Patient was on have a vaginal delivery viable male . Please see dictated delivery note. day #2 patient's felt be stable for discharge home follow up with me in 6 weeks. Procedures: Normal spontaneous vaginal delivery Patient Condition at Discharge: Good Plan - Discharge Summary New Discharge Prescriptions: New Ibuprofen [Motrin] 600 mg PO Q6HR PRN #30 tab PRN Reason: Mild Pain Or Fever >= 100.5 No Action Pnv No.95/Ferrous Fum/Folic AC [ Multivitamin Tablet] 1 tab PO DAILY Discharge Medication List Pnv No.95/Ferrous Fum/Folic AC [ Multivitamin Tablet] 1 tab PO DAILY 03/13/19 [History] Ibuprofen [Motrin] 600 mg PO Q6HR PRN #30 tab 04/07/19 [Rx] Follow up Appointment(s)/Referral(s): Phil Miller MD [STAFF PHYSICIAN] - 05/20/19 10:30 am Patient Instructions/Handouts: Vaginal Delivery (DC) Activity/Diet/Wound Care/Special Instructions: No intercourse or anything per vagina for 6 weeks. Please call if any fever, chills, excessive vaginal bleeding, and/or abdominal pain.
[2019-04-07] MEDS: SENNOSIDES-DOCUSATE SODIUM 1 EACH TAB PO SCH (07:24)
[2019-04-07] MEDS: IBUPROFEN 600 MG TAB PO PRN (07:24)
[2019-04-07 07:28] VITALS: BP 118/76; PULSE 79; RESP 14; TEMP 98.5
[2019-04-07 07:53] LABS: Basophils % (A) 0 %; Eosinophils # (A) 0.1 k/uL (0-0.7); Eosinophils % (A) 1 %; HCT 33.5 % (34.0-46.0); HGB 11.5 gm/dL (11.4-16.0); Lymphocytes # (A) 4.2 k/uL (1.0-4.8); Lymphocytes % (A) 31 %; MCHC 34.4 g/dL (31.0-37.0); MCV 84.3 fL (80.0-100.0); Mean Platelet Volume 7.6; Monocytes # (A) 0.6 k/uL (0-1.0); Monocytes % (A) 4 %; Neutrophils # (A) 8.4 k/uL (1.3-7.7); Neutrophils % (A) 62 %; Platelet Count 311 k/uL (150-450); RBC 3.98 m/uL (3.80-5.40); RDW 14.8 % (11.5-15.5); WBC 13.6 k/uL (3.8-10.6)
== END 2019-04-07 10:21 | disposition home or self-care (01) | DRG 807 ==
LOC: FBPOP 11:59 → 4FBP 14:07
PROVIDERS: ADMIT Obstetrics & Gynecology; ATTEND Obstetrics & Gynecology
PROC: 10E0XZZ Delivery of Products of Conception, External Approach (ICD-10-PCS; principal; 2019-04-05)
PROC: 3E0R3NZ Introduction of Analgesics, Hypnotics, Sedatives into Spinal Canal, Percutaneous Approach (ICD-10-PCS; principal; 2019-04-05)
PROC: 00HU33Z Insertion of Infusion Device into Spinal Canal, Percutaneous Approach (ICD-10-PCS; principal; 2019-04-05)
PROC: 0KQM0ZZ Repair Perineum Muscle, Open Approach (ICD-10-PCS; principal; 2019-04-05)
DX: O99.824 Streptococcus B carrier state complicating childbirth (principal); Z37.0 Single live birth; Z3A.39 39 weeks gestation of pregnancy; O70.1 Second degree perineal laceration during delivery; L29.9 Pruritus, unspecified; O43.123 Velamentous insertion of umbilical cord, third trimester; Z82.49 Family history of ischemic heart disease and other diseases of the circulatory system
CPT/HCPCS: 59025; 85025; 86850; 86900; 86901; 88307; 99213

== ENCOUNTER 2021-04-09 22:06 | Emergency (ER) | payer BC ==
[2021-04-09 22:11] VITALS: BP 142/84; TEMP 98.2
[2021-04-09 22:38] LABS: Basophils % (A) 0 %; Eosinophils # (A) 0.1 k/uL (0-0.7); Eosinophils % (A) 1 %; HCT 43.6 % (34.0-46.0); HGB 15.1 gm/dL (11.4-16.0); Lymphocytes # (A) 2.2 k/uL (1.0-4.8); Lymphocytes % (A) 18 %; MCH 29.8 pg (25.0-35.0); MCHC 34.7 g/dL (31.0-37.0); MCV 85.8 fL (80.0-100.0); Mean Platelet Volume 6.8; Monocytes # (A) 0.5 k/uL (0-1.0); Monocytes % (A) 4 %; Neutrophils # (A) 9.1 k/uL (1.3-7.7); Neutrophils % (A) 76 %; Platelet Count 359 k/uL (150-450); RBC 5.08 m/uL (3.80-5.40); RDW 11.9 % (11.5-15.5); WBC 12.1 k/uL (3.8-10.6)
[2021-04-09 22:41] LABS: Appearance,Urine Cloudy (Clear); Bacteria,Urine Many /hpf; Bilirubin,Urine Negative (Negative); Blood,Urine Small (Negative); Color,Urine Yellow; Glucose,Urine (UA) Negative (Negative); Ketones,Urine 1+ (Negative); Leukocyte Esterase,Urine Small (Negative); Mucus,Urine Rare /hpf; Nitrite,Urine Negative (Negative); Protein,Urine Trace (Negative); RBC,Urine 9 /hpf (0-5); Specific Gravity,Urine 1.023 (1.001-1.035); Squamous Epithelial Cell,Urine 5 /hpf (0-4); Urobilinogen,Urine <2.0 mg/dL (<2.0); WBC,Urine 3 /hpf (0-5)
[2021-04-09] MEDS ORDERED: ONDANSETRON 4 MG/2 ML VIAL IVP STA (22:43)
[2021-04-09 22:45] LABS: ALT 16 U/L (4-34); AST 20 U/L (14-36); African American GFR (CKD) >90 (>60 ml/min/1.73 sqM); Albumin 4.4 g/dL (3.5-5.0); Alkaline Phosphatase 83 U/L (38-126); Amylase 54 U/L (30-110); Anion Gap 13 mmol/L; Blood Urea Nitrogen 10 mg/dL (7-17); Calcium 9.4 mg/dL (8.4-10.2); Carbon Dioxide 22 mmol/L (22-30); Chloride 102 mmol/L (98-107); Glucose 109 mg/dL (74-99); Lipase 41 U/L (23-300); Non-African American GFR(CKD) >90 (>60 ml/min/1.73 sqM); Potassium 3.5 mmol/L (3.5-5.1); Sodium 137 mmol/L (137-145); Total Bilirubin 0.5 mg/dL (0.2-1.3); Total Protein 7.2 g/dL (6.3-8.2)
--- NOTE | 2021-04-10 00:05 | US ---
EXAMINATION TYPE: US abdomen limited DATE OF EXAM: 04/09/2021 COMPARISON: NONE CLINICAL HISTORY: Right abdominal pain. Right-sided abdominal pain, nausea, vomiting. Patient states she is about 8 weeks . EXAM MEASUREMENTS: Liver Length: 15.4 cm Gallbladder Wall: 0.23 cm CBD: 0.20 cm Right Kidney: 10.4 x 6.5 x 4.4 cm Limited due to overlying bowel gas. Pancreas: Tail is obscured. Liver: Appears slightly coarse in echotexture. Gallbladder: Fold seen. Appears anechoic. Evidence for sonographic Donovan's sign: No. CBD: Portions seen appear wnl. Right Kidney: Possible column of Philip appearance versus dilated upper collecting system appearance ?. IMPRESSION: No gallstones or dilated ducts. No focal liver defect. Normal right kidney.
--- NOTE | 2021-04-10 00:15 | ED ---
Abdominal Pain HPI - General Chief Complaint: Abdominal Pain Stated Complaint: Nausea, Vomiting, 8 weeks preg. Time Seen by Provider: 04/09/21 22:14 Source: patient Mode of arrival: ambulatory Limitations: no limitations - History of Present Illness Initial Comments: This patient is 30-year-old woman who presents to be evaluated for right-sided abdominal pain, nausea and vomiting. The patient states that the pain is been getting worse since early in the day. She has also had 3 episodes of vomiting. There has been no hematemesis or coffee-ground emesis. Patient states she is proximally 8 weeks . She is not having vaginal bleeding or discharge. No fever or chills. No change in bowel movements. MD Complaint: abdominal pain Onset/Timin -: days(s) Location: RUQ Radiation: none Migration to: no migration Severity: mild Quality: aching Consistency: intermittent Improves With: nothing Worsens With: nothing Associated Symptoms: nausea, vomiting - Related Data LMP (females 10-50): 2 months Patient : Yes Number of weeks : 8 Home Medications Medication Instructions Recorded Confirmed Pnv No.95/Ferrous Fum/Folic AC 1 tab PO DAILY 03/13/19 04/09/21 [ Multivitamin Tablet] Previous Rx's Medication Instructions Recorded Amoxicillin 500 mg PO Q8H #21 capsule 04/10/21 Allergies Allergy/AdvReac Type Severity Reaction Status Date / Time alcohol AdvReac Nausea & Verified 04/09/21 22:59 Vomiting metronidazole [From Flagyl] AdvReac Nausea & Verified 04/09/21 22:59 Vomiting Review of Systems ROS Statement: Those systems with pertinent positive or pertinent negative responses have been documented in the HPI. ROS Other: All systems not noted in ROS Statement are negative. Constitutional: Denies: fever, chills Respiratory: Denies: cough, dyspnea Cardiovascular: Denies: chest pain, palpitations, edema Gastrointestinal: Reports: as per HPI, abdominal pain, nausea, vomiting. Denies: diarrhea, constipation, melena, hematochezia Genitourinary: Denies: urgency, frequency, hematuria, discharge, abnormal menses Musculoskeletal: Denies: back pain Skin: Denies: rash Neurological: Denies: headache, weakness Past Medical History Past Medical History: No Reported History History of Any Multi-Drug Resistant Organisms: None Reported Past Surgical History: Adenoidectomy, Ear Surgery Additional Past Surgical History / Comment(s): toe Past Psychological History: No Psychological Hx Reported Smoking Status: Never smoker Past Alcohol Use History: None Reported Past Drug Use History: None Reported - Past Family History Father Family Medical History: Hypertension General Exam Limitations: no limitations General appearance: alert, in no apparent distress Head exam: Present: atraumatic, normocephalic Eye exam: Present: normal appearance. Absent: scleral icterus, conjunctival injection ENT exam: Present: normal oropharynx Neck exam: Present: normal inspection Respiratory exam: Present: normal lung sounds bilaterally. Absent: respiratory distress, wheezes, rales, rhonchi, stridor Cardiovascular Exam: Present: regular rate, normal rhythm, normal heart sounds. Absent: systolic murmur, diastolic murmur, rubs, gallop GI/Abdominal exam: Present: soft. Absent: distended, tenderness, guarding, rebound, rigid, mass, pulsatile mass, hernia Extremities exam: Present: normal inspection, normal capillary refill. Absent: pedal edema, calf tenderness Back exam: Present: normal inspection. Absent: CVA tenderness (R), CVA tenderness (L) Neurological exam: Present: alert Skin exam: Present: warm, dry, intact, normal color. Absent: rash Course Vital Signs 04/09/21 22:09 Temperature 98.2 F Pulse Rate 99 Respiratory 18 Rate Blood Pressure 142/84 O2 Sat by Pulse 98 Oximetry Medical Decision Making - Lab Data Result diagrams: 04/09/21 22:22 04/09/21 22:22 Lab Results 04/09/21 04/09/21 04/09/21 Range/Units 22:22 22:22 22:22 WBC 12.1 H (3.8-10.6) k/uL RBC 5.08 (3.80-5.40) m/uL Hgb 15.1 (11.4-16.0) gm/dL Hct 43.6 (34.0-46.0) % MCV 85.8 (80.0-100.0) fL MCH 29.8 (25.0-35.0) pg MCHC 34.7 (31.0-37.0) g/dL RDW 11.9 (11.5-15.5) % Plt Count 359 (150-450) k/uL MPV 6.8 Neutrophils % 76 % Lymphocytes % 18 % Monocytes % 4 % Eosinophils % 1 % Basophils % 0 % Neutrophils # 9.1 H (1.3-7.7) k/uL Lymphocytes # 2.2 (1.0-4.8) k/uL Monocytes # 0.5 (0-1.0) k/uL Eosinophils # 0.1 (0-0.7) k/uL Basophils # 0.0 (0-0.2) k/uL Sodium 137 (137-145) mmol/L Potassium 3.5 (3.5-5.1) mmol/L Chloride 102 (98-107) mmol/L Carbon Dioxide 22 (22-30) mmol/L Anion Gap 13 mmol/L BUN 10 (7-17) mg/dL Creatinine 0.48 L (0.52-1.04) mg/dL Est GFR (CKD-EPI)AfAm >90 (>60 ml/min/1.73 sqM) Est GFR (CKD-EPI)NonAf >90 (>60 ml/min/1.73 sqM) Glucose 109 H (74-99) mg/dL Plasma Lactic Acid Hakeem (0.7-2.0) mmol/L Calcium 9.4 (8.4-10.2) mg/dL Total Bilirubin 0.5 (0.2-1.3) mg/dL AST 20 (14-36) U/L ALT 16 (4-34) U/L Alkaline Phosphatase 83 (38-126) U/L Total Protein 7.2 (6.3-8.2) g/dL Albumin 4.4 (3.5-5.0) g/dL Amylase 54 (30-110) U/L Lipase 41 (23-300) U/L Urine Color Yellow Urine Appearance Cloudy H (Clear) Urine pH 6.0 (5.0-8.0) Ur Specific Godwin 1.023 (1.001-1.035) Urine Protein Trace H (Negative) Urine Glucose (UA) Negative (Negative) Urine Ketones 1+ H (Negative) Urine Blood Small H (Negative) Urine Nitrite Negative (Negative) Urine Bilirubin Negative (Negative) Urine Urobilinogen <2.0 (<2.0) mg/dL Ur Leukocyte Esterase Small H (Negative) Urine RBC 9 H (0-5) /hpf Urine WBC 3 (0-5) /hpf Ur Squamous Epith Cells 5 H (0-4) /hpf Urine Bacteria Many H (None) /hpf Urine Mucus Rare H (None) /hpf Urine HCG, Qual (Not Detectd) 04/09/21 04/09/21 Range/Units 22:22 22:22 WBC (3.8-10.6) k/uL RBC (3.80-5.40) m/uL Hgb (11.4-16.0) gm/dL Hct (34.0-46.0) % MCV (80.0-100.0) fL MCH (25.0-35.0) pg MCHC (31.0-37.0) g/dL RDW (11.5-15.5) % Plt Count (150-450) k/uL MPV Neutrophils % % Lymphocytes % % Monocytes % % Eosinophils % % Basophils % % Neutrophils # (1.3-7.7) k/uL Lymphocytes # (1.0-4.8) k/uL Monocytes # (0-1.0) k/uL Eosinophils # (0-0.7) k/uL Basophils # (0-0.2) k/uL Sodium (137-145) mmol/L Potassium (3.5-5.1) mmol/L Chloride (98-107) mmol/L Carbon Dioxide (22-30) mmol/L Anion Gap mmol/L BUN (7-17) mg/dL Creatinine (0.52-1.04) mg/dL Est GFR (CKD-EPI)AfAm (>60 ml/min/1.73 sqM) Est GFR (CKD-EPI)NonAf (>60 ml/min/1.73 sqM) Glucose (74-99) mg/dL Plasma Lactic Acid Hakeem 0.9 (0.7-2.0) mmol/L Calcium (8.4-10.2) mg/dL Total Bilirubin (0.2-1.3) mg/dL AST (14-36) U/L ALT (4-34) U/L Alkaline Phosphatase (38-126) U/L Total Protein (6.3-8.2) g/dL Albumin (3.5-5.0) g/dL Amylase (30-110) U/L Lipase (23-300) U/L Urine Color Urine Appearance (Clear) Urine pH (5.0-8.0) Ur Specific Godwin (1.001-1.035) Urine Protein (Negative) Urine Glucose (UA) (Negative) Urine Ketones (Negative) Urine Blood (Negative) Urine Nitrite (Negative) Urine Bilirubin (Negative) Urine Urobilinogen (<2.0) mg/dL Ur Leukocyte Esterase (Negative) Urine RBC (0-5) /hpf Urine WBC (0-5) /hpf Ur Squamous Epith Cells (0-4) /hpf Urine Bacteria (None) /hpf Urine Mucus (None) /hpf Urine HCG, Qual Detected (Not Detectd) Disposition Clinical Impression: Bacteriuria during , Abdominal pain Disposition: HOME SELF-CARE Condition: Good Instructions (If sedation given, give patient instructions): Abdominal Pain in (ED) Prescriptions: Amoxicillin 500 mg PO Q8H #21 capsule Is patient prescribed a controlled substance at d/c from ED?: No Referrals: Linette Yarbrough DO [Primary Care Provider] - 1-2 days
[2021-04-10 00:26] VITALS: PULSE 82; RESP 16
== END 2021-04-10 00:31 | disposition home or self-care (01) ==
LOC: EC 22:06
DX: O23.91 Unspecified genitourinary tract infection in pregnancy, first trimester (principal); R82.71 Bacteriuria; O26.891 Other specified pregnancy related conditions, first trimester; R10.11 Right upper quadrant pain; Z3A.08 8 weeks gestation of pregnancy
CPT/HCPCS: 36415; 80053; 82150; 83605; 83690; 85025; 81001; 81025; 76705; 96374; 99284; J2405

== ENCOUNTER → 2021-04-09 | Outpatient (CLI) | payer BC | LOC: LABMAIN 12:58 | PROVIDERS: ATTEND Emergency Medicine | DX: Z20.822 Contact with and (suspected) exposure to COVID-19 (principal) | CPT/HCPCS: 87635 ==

== ENCOUNTER → 2021-04-10 | Outpatient (CLI) | payer BC, OTHER | END | disposition home or self-care (01) | LOC: LABWHC1 12:52 | PROVIDERS: ATTEND Emergency Medicine | DX: Z20.822 Contact with and (suspected) exposure to COVID-19 (principal) | CPT/HCPCS: 87635 ==

== ENCOUNTER → 2021-08-27 | Outpatient (CLI) | payer BC ==
[2021-08-27 14:24] LABS: HCT 35.6 % (37.2-46.3); HGB 11.8 g/dL (12.0-15.0); MCH 29.9 pg (27.0-32.0); MCHC 33.1 g/dL (32.0-37.0); MCV 90.4 fL (80.0-97.0); Mean Platelet Volume 9.7 fL (9.5-12.2); NRBC Per 100 WBC 0 /100 WBCS (0.0-0.0); Platelet Count 314 X 10*3/uL (140-440); RBC 3.94 X 10*6/uL (4.10-5.20); RDW 13.5 % (11.5-14.5); WBC 14.38 X 10*3/uL (4.50-10.00)
== END | disposition home or self-care (01) ==
LOC: LABWHC1 07:35
PROVIDERS: ATTEND Obstetrics & Gynecology
DX: Z34.82 Encounter for supervision of other normal pregnancy, second trimester (principal); Z3A.00 Weeks of gestation of pregnancy not specified
CPT/HCPCS: 36415; 82950; 85027

== ENCOUNTER → 2021-08-29 | Outpatient (CLI) | payer BC ==
[2021-08-29 11:45] LABS: Glucose 3 Hour, Gest 124 mg/dL
== END | disposition home or self-care (01) ==
LOC: LABWHC1 07:28
PROVIDERS: ATTEND Obstetrics & Gynecology
DX: O99.810 Abnormal glucose complicating pregnancy (principal); Z3A.00 Weeks of gestation of pregnancy not specified
CPT/HCPCS: 36415; 82951; 82952

== ENCOUNTER 2021-11-16 15:17 | Inpatient (IN) | payer BC ==
--- NOTE | 2021-11-16 16:27 | US ---
EXAMINATION TYPE: US OB BPP wo non-stress DATE OF EXAM: 11/16/2021 COMPARISON: US CLINICAL HISTORY: Decreased movement. Decreased movement EXAM PERFORMED: Transabdominal (TA) BPP PARAMETERS: PRESENTATION: Vertex HEART RATE: 125 bpm RHYTHM: Normal KARLY: 15.8 DIAPHRAGM IMAGED: Yes BPP SCORIN. Breathin (1 episode of breathing of 30 second duration in 30 minutes of scanning time) 2. Movement: 0 (at least 3 discrete body movements in 30 minutes) 3. Tone: 2 (1 episode of active flexion/extension of limb) 4. KARLY: 2 (KARLY index > 5cm) TOTAL SCORE: 6 / 8 Results given to Brianne in L&D at time of exam
[2021-11-16] MEDS ORDERED: CARBOPROST TROMETHAMINE 250 MCG/ML 1 ML AMP IM PRN (16:41)
[2021-11-16] MEDS ORDERED: TERBUTALINE 1 MG/ML VIAL SQ PRN (16:41)
[2021-11-16] MEDS ORDERED: METHYLERGONOVINE 0.2 MG/ML 1 ML AMP IM PRN (16:41)
[2021-11-16] MEDS ORDERED: OXYTOCIN 10 UNIT/ML 1 ML VIAL IM PRN (16:41)
[2021-11-16] MEDS ORDERED: AMPICILLIN 2,000 MG in SODIUM CHLORIDE 0.9% 100 ML IVPB STA (16:41)
[2021-11-16] MEDS ORDERED: LIDOCAINE 0.5% (PF) 5 MG/ML (50 ML SDV) SQ PRN (16:41)
[2021-11-16] MEDS ORDERED: LACTATED RINGERS 1,000 ML IV SCH (16:45)
[2021-11-16] MEDS ORDERED: OXYTOCIN 30 UNITS/500 ML NS 30 UNIT in SALINE 1 500ML.BAG IV SCH ×2 (16:45→23:45)
--- NOTE | 2021-11-16 17:19 | P.HPOB ---
History of Present Illness H&P Date: 11/16/21 Chief Complaint: Decreased movement This patient is a pleasant 31-year-old 2 para 1 female estimated date of confinement 11/28/2021 estimated gestational age 38-2/7 weeks who presented to my office this afternoon and was complaining of decreased movement. Patient sent to labor and delivery and nonstress test is reactive however she had an abnormal biophysical profile of 6 out of 8, patient did not score any points for movement. I discussed concerns with the patient including possible poor outcome with progression of the and we elected to proceed with induction at this time. care is complicated by some bleeding earlier in the when she was transferred to maternal- medicine found to have what they felt was a cervical polyp. Initial concern was an abruption however this found not to be the case. Patient also developed Covid during the first week of July. Review of Systems Genitourinary: Reports as per HPI, Reports Menstruation: Reports amenorrhea Past Medical History Past Medical History: No Reported History History of Any Multi-Drug Resistant Organisms: None Reported Past Surgical History: Adenoidectomy, Ear Surgery Additional Past Surgical History / Comment(s): toe Past Psychological History: No Psychological Hx Reported Smoking Status: Never smoker Past Drug Use History: None Reported - Past Family History Father Family Medical History: Hypertension Medications and Allergies Home Medications Medication Instructions Recorded Confirmed Type Pnv No.95/Ferrous Fum/Folic AC 1 tab PO DAILY 03/13/19 11/16/21 History [ Multivitamin Tablet] Allergies Allergy/AdvReac Type Severity Reaction Status Date / Time alcohol AdvReac Nausea & Verified 11/16/21 15:26 Vomiting metronidazole [From Flagyl] AdvReac Nausea & Verified 11/16/21 15:26 Vomiting Exam Vital Signs Temp Pulse Resp BP Pulse Ox 11/16/21 16:19 97.2 F L 107 H 17 136/80 99 Intake and Output 11/16/21 11/16/21 11/16/21 06:59 14:59 22:59 Other: Weight 98.43 kg - OBG Physical Exam Abdomen: bowel sounds normal, no diffuse tenderness, no bruit present, no guarding noted, no hepatomegaly, no splenomegaly, no mass Vulva: both: normal Vagina: normal moisture, no discharge Cervix: no lesion (Cervix is 4 cm dilated 50% effaced -2 station), no discharge Uterus: enlarged (Following the office 39 cm) Results labs show she is A positive, rubella immune, hepatitis B is negative, HIV is nonreactive, RPR is nonreactive, Glucola was 140 with a normal three-hour gtt., level III ultrasound was normal. Most recent ultrasound done on October 25 showed 5 lbs. 11 oz. vertex presentation. Patient is a positive group B strep and a positive urine culture for strep. Assessment and Plan Assessment: This is a pleasant 31-year-old 2 para 1 female 38-2/7 weeks gestation with decreased movement and abnormal biophysical profile. This time heart tones are category 1 therefore we'll proceed with induction of labor and delivery. Patient is a positive group B strep culture and therefore will get prophylactic antibiotics. Anticipate vaginal delivery. (1) 38 weeks gestation of Current Visit: Yes Status: Acute Code(s): Z3A.38 - 38 WEEKS GESTATION OF SNOMED Code(s): 16483515 (2) Decreased movement Current Visit: Yes Status: Acute Code(s): O36.8190 - DECREASED MOVEMENTS, UNSP TRIMESTER, UNSP SNOMED Code(s): 363026572 (3) Abnormal test Current Visit: Yes Status: Acute Code(s): O28.9 - UNSP ABNORMAL FINDINGS ON SCREENING OF MOTHER SNOMED Code(s): 793674065 (4) Group B streptococcal carriage complicating Current Visit: No Status: Acute Code(s): O99.820 - STREPTOCOCCUS B CARRIER STATE COMPLICATING SNOMED Code(s): 242178083307430
[2021-11-16 17:37] LABS: Basophils % (A) 0 %; Eosinophils # (A) 0.1 k/uL (0-0.7); Eosinophils % (A) 0 %; HCT 39.3 % (34.0-46.0); HGB 13.6 gm/dL (11.4-16.0); Lymphocytes % (A) 22 %; MCH 29.6 pg (25.0-35.0); MCHC 34.5 g/dL (31.0-37.0); MCV 85.7 fL (80.0-100.0); Mean Platelet Volume 7.6; Monocytes # (A) 0.6 k/uL (0-1.0); Monocytes % (A) 4 %; Neutrophils # (A) 9.6 k/uL (1.3-7.7); Neutrophils % (A) 72 %; Platelet Count 390 k/uL (150-450); RBC 4.58 m/uL (3.80-5.40); RDW 14.3 % (11.5-15.5); WBC 13.4 k/uL (3.8-10.6)
[2021-11-16] MEDS ORDERED: AMPICILLIN 1,000 MG in SODIUM CHLORIDE 0.9% 50 ML IVPB SCH (20:45)
[2021-11-16] MEDS ORDERED: fentaNYL (PF) 50 MCG/ML 5 ML AMP ONE (21:28)
[2021-11-16] MEDS ORDERED: BUPIVACAINE (PF) 0.25% 30 ML VIAL ONE (21:28)
[2021-11-16] MEDS ORDERED: SODIUM CHLORIDE 0.9% 100 ML BAG ONE (21:28)
[2021-11-16] MEDS ORDERED: diphenhydrAMINE 50 MG/ML 1 ML VIAL IVP PRN (23:47)
[2021-11-16] MEDS ORDERED: ACETAMINOPHEN TAB 325 MG TAB PO PRN (23:47)
[2021-11-16] MEDS ORDERED: SIMETHICONE 80 MG CHEWABLE PO PRN (23:47)
[2021-11-16] MEDS ORDERED: bisacodyL 10 MG SUPP RECTAL PRN (23:47)
[2021-11-16] MEDS ORDERED: BENZOCAINE/MENTHOL SPRAY 1 GM/SPRAY AEROSOL TOPICAL PRN (23:47)
[2021-11-16] MEDS ORDERED: ZOLPIDEM 5 MG TAB PO PRN (23:47)
[2021-11-16] MEDS ORDERED: HYDROCORTISONE 2.5% RECTAL CREAM 30 GM TUBE RECTAL PRN (23:47)
[2021-11-16] MEDS ORDERED: LANOLIN CREAM 5 GM TUBE TOPICAL PRN (23:47)
[2021-11-16] MEDS ORDERED: diphenhydrAMINE 25 MG CAP PO PRN (23:47)
--- NOTE | 2021-11-16 23:54 | P.PROBDLV ---
Vaginal Delivery Note - . Vaginal Delivery Note: Normal vaginal delivery viable female Apgars 9 and 9 delivery time is 2328 hrs. Please see dictated H&P for intimate details of this patient's admission. Brief summary this patient is a pleasant 31-year-old 2 para 1 female 38-2/7 weeks gestation admitted to labor and delivery from my office for decreased movement. Dilation shows a reactive NST however she does have an abnormal biophysical profile therefore recommended proceed with delivery. Patient is 4 cm dilated is artificial rupture membranes for clear fluid. She is given antibiotic prophylaxis due to positive group B strep culture. Patient's labor progresses she gets an epidural for pain control. She quickly thereafter progresses to complete. Patient does pushed for a short period of time. Of note on initial few pushes she does deliver a small cervical polyp which we knew about from prenatally. She pushes the head the perineum the posterior perineum was supported. Controlled delivery of the 's head over the intact perineum. Mouth and nares are bulb suctioned. Very tight nuchal cord is doubly clamped and cut reduced. With gentle downward traction we then have delivery the anterior and posterior shoulder and rest this infant's body. This is a vigorous viable female Apgars 9 and 9 delivery time is 2328 hrs. After delivery of the infant the is late on the mother's abdomen. Placenta is then spontaneously delivered intact. Inspection of the perineum shows a small first-degree laceration. 3-0 Vicryl. She also has a benign papilloma right perineum which is excised and suture ligated with 3-0 Vicryl. All counts are correct 3. There are no complications. Infant and mother are stable in delivery room.
--- NOTE | 2021-11-17 07:22 | P.PNOBGVD ---
Subjective - Subjective Patient reports: Reports appetite normal, Reports voiding normally, Reports pain well controlled, Reports ambulating normally : doing well Objective - Latest Vital Signs Latest vital signs: Vital Signs Temp Pulse Resp BP Pulse Ox 11/17/21 05:45 98.3 F 98 16 110/74 11/17/21 01:40 98.0 F 103 H 16 109/63 11/17/21 01:10 92 16 117/64 11/17/21 00:40 97.4 F L 96 16 113/57 11/17/21 00:25 101 H 16 116/56 11/17/21 00:10 95 16 114/58 11/16/21 23:55 102 H 16 133/73 11/16/21 23:40 97.4 F L 106 H 16 124/77 11/16/21 16:26 97.2 F L 107 H 17 136/80 99 11/16/21 16:19 97.2 F L 107 H 17 136/80 99 Intake and Output 11/16/21 11/17/21 11/17/21 22:59 06:59 14:59 Output Total 276 Balance -276 Output: Estimated Blood Loss 163 Output, Quantitative 113 Blood Loss Other: # Voids 2 2 Weight 98.43 kg - Exam Lungs: bilateral: normal Chest: Normal S1, Normal S2 Extremities: Present: normal Abdomen: Present: normal appearance, soft Uterus: Present: normal, firm - Labs Labs: Abnormal Lab Results - Last 24 Hours (Table) 11/16/21 Range/Units 16:55 WBC 13.4 H (3.8-10.6) k/uL Neutrophils # 9.6 H (1.3-7.7) k/uL Assessment and Plan Assessment: day #1. Patient is resting without new complaints. Vital signs are stable she's afebrile. Uterus is firm nontender and she is having normal lochia. I impression this is a normal course. Plan is to continue routine care discharge home tomorrow (1) 38 weeks gestation of Current Visit: Yes Status: Acute Code(s): Z3A.38 - 38 WEEKS GESTATION OF SNOMED Code(s): 31740777 (2) Decreased movement Current Visit: Yes Status: Acute Code(s): O36.8190 - DECREASED MOVEMENTS, UNSP TRIMESTER, UNSP SNOMED Code(s): 913502600 (3) Abnormal test Current Visit: Yes Status: Acute Code(s): O28.9 - UNSP ABNORMAL FINDINGS ON SCREENING OF MOTHER SNOMED Code(s): 948530465 (4) Group B streptococcal carriage complicating Current Visit: No Status: Acute Code(s): O99.820 - STREPTOCOCCUS B CARRIER STATE COMPLICATING SNOMED Code(s): 328379488282248
--- NOTE | 2021-11-17 07:41 | P.MSEPDOC ---
Presenting Problems - Arrival Data Date of Arrival on Unit: 11/16/21 Time of Arrival on Unit: 16:19 Mode of Transport: Ambulatory - Complaint OB-Reason for Admission/Chief Complaint: Decreased Movement, NST Comment: Pt was sent over from Dr. Miller's office for decreased movement and nonreactive NST. Orders received from Dr. Miller for prolonged monitoring and a BPP. Medical History - Information : 2 Para: 1 Term: 1 : 0 Abortions: Spontaneous or Elective: 0 Number of Living Children: 1 - Gestational Age Gestational Age by KATY (wks/days): 38 Weeks and 3 Days Review of Systems - Review of Systems Constitutional: No problems Breast: No problems ENT: No problems Cardiovascular: No problems Respiratory: No problems Gastrointestinal: No problems Genitourinary: No problems Musculoskeletal: No problems Neurological: No problems Skin: No problems Vital Signs - Temperature Temperature: 98.3 F Temperature Source: Oral - Pulse Pulse Oximetery Pulse Rate: 98 Pulse Assessment Method: Automatic Cuff - Respirations Respiratory Rate: 16 Oxygen Delivery Method: Room Air - Blood Pressure Right Arm Blood Pressure: 110/74 Blood Pressure Mean: 86 Blood Pressure Source: Automatic Cuff Medical Screen Scoring - Uterine Contractions Resting: Soft to palpation - Assessment - Baby A Baseline FHR: 125 Heart Rate - NICHD Category: Category I (Normal) NST: Reactive Physician Notification - Physician Notified Physician Notified Date: 11/16/21 Physician Notified Time: 16:17 Physician: Phil Miller New Order Received: Yes - Notification Comment Comment: RN spoke with Dr. Miller regarding reactive NST, category 1 FHT, maternal vitals WNL, BPP of [address] Miller, pt to be admitted for labor. Orders received to start pitocin. once IV is started and order antibiotics for positive GBS Maternal Triage Index - Maternal Triage Index Presenting for scheduled procedure w/no complaint: No - Stat/Priority 1 Stat Priority 1: No - Urgent/Priority 2 Urgent Priority 2: No - Prompt/Priority 3 Prompt Priority 3: No - Non-Urgent/Priority 4 Non-Urgent Priority 4: No - Scheduled/Requesting Priority 5 Scheduled/Requesting Priority 5: Yes Criteria Met for Priority 5: Pt was sent over from Dr. Miller's office for decreased movement and nonreactive NST. Orders received from Dr. Miller for prolonged monitoring and a BPP. Disposition - Disposition OB Disposition: Admit Transferred to:: [address] I agree with the RN Medical Screening Exam: Yes Case reviewed; plan agreed upon as documented in EMR&OBIX.: Yes Diagnosis: DECREASED MOVEMENTS, THIRD TRIMESTER, FETUS 1 (Biophysical profile 6 out of 8 therefore patient be admitted for delivery due to nonreassuring testing)
[2021-11-17 08:10] LABS: Basophils # (A) 0.1 k/uL (0-0.2); Basophils % (A) 0 %; Eosinophils # (A) 0.1 k/uL (0-0.7); Eosinophils % (A) 1 %; HCT 38.2 % (34.0-46.0); HGB 13.1 gm/dL (11.4-16.0); Lymphocytes # (A) 3.4 k/uL (1.0-4.8); Lymphocytes % (A) 19 %; MCH 29.5 pg (25.0-35.0); MCHC 34.2 g/dL (31.0-37.0); MCV 86.2 fL (80.0-100.0); Mean Platelet Volume 7.5; Monocytes # (A) 0.8 k/uL (0-1.0); Monocytes % (A) 4 %; Neutrophils # (A) 13.3 k/uL (1.3-7.7); Neutrophils % (A) 75 %; Platelet Count 371 k/uL (150-450); RBC 4.43 m/uL (3.80-5.40); RDW 14.2 % (11.5-15.5); WBC 17.8 k/uL (3.8-10.6)
[2021-11-17] MEDS: SENNOSIDES-DOCUSATE SODIUM 1 EACH TAB PO SCH ×2 (08:21→19:33)
[2021-11-17] MEDS: IBUPROFEN 600 MG TAB PO PRN ×2 (10:53→19:32)
[2021-11-17 16:46] VITALS: RESP 16
--- NOTE | 2021-11-18 07:37 | P.PNOBGVD ---
Subjective - Subjective Patient reports: Reports appetite normal, Reports voiding normally, Reports pain well controlled, Reports ambulating normally : doing well Objective - Latest Vital Signs Latest vital signs: Vital Signs Temp Pulse Resp BP Pulse Ox 11/18/21 00:00 97.5 F L 72 16 118/70 100 11/17/21 16:00 97.6 F 87 16 116/75 11/17/21 12:00 97.9 F 74 17 106/66 97 11/17/21 08:00 97.7 F 85 16 115/73 97 11/17/21 07:41 98.3 F 98 16 110/74 Intake and Output 11/17/21 11/18/21 11/18/21 22:59 06:59 14:59 Other: # Voids 1 - Exam Lungs: bilateral: normal Chest: Normal S1, Normal S2 Extremities: Present: normal Abdomen: Present: normal appearance, soft Uterus: Present: normal, firm - Labs Labs: Abnormal Lab Results - Last 24 Hours (Table) 11/17/21 Range/Units 07:40 WBC 17.8 H (3.8-10.6) k/uL Neutrophils # 13.3 H (1.3-7.7) k/uL Assessment and Plan Assessment: day #2. Patient is resting without complaints and wishes to go home. Vital signs are stable and she is afebrile. Uterus is firm nontender she's having normal lochia. My impression is this is a normal course. Plan is to continue routine care discharge home later today (1) 38 weeks gestation of Current Visit: Yes Status: Acute Code(s): Z3A.38 - 38 WEEKS GESTATION OF SNOMED Code(s): 05754318 (2) Decreased movement Current Visit: Yes Status: Acute Code(s): O36.8190 - DECREASED MOVEMENTS, UNSP TRIMESTER, UNSP SNOMED Code(s): 518526331 (3) Abnormal test Current Visit: Yes Status: Acute Code(s): O28.9 - UNSP ABNORMAL FINDINGS ON SCREENING OF MOTHER SNOMED Code(s): 768745868 (4) Group B streptococcal carriage complicating Current Visit: No Status: Acute Code(s): O99.820 - STREPTOCOCCUS B CARRIER STATE COMPLICATING SNOMED Code(s): 276463869246911
--- NOTE | 2021-11-18 07:41 | P.DS ---
Providers Date of admission: 11/16/21 16:25 Expected date of discharge: 11/18/21 Attending physician: Phil Miller Primary care physician: Stated None - Discharge Diagnosis(es) (1) 38 weeks gestation of Current Visit: Yes Status: Acute (2) Decreased movement Current Visit: Yes Status: Acute (3) Abnormal test Current Visit: Yes Status: Acute (4) Group B streptococcal carriage complicating Current Visit: No Status: Acute Hospital Course: Please see dictated H&P for intimate details of this patient's admission. Brief summary this pleasant 31-year-old 2 para 1 female 38-2/7 weeks gestation who is admitted to labor and delivery for decreased movement and has a nonreassuring testing. Patient subsequently goes on to have a vaginal delivery viable female . Please see dictated delivery note. her to patient's felt be stable for discharge home follow up with me in 6 weeks. Procedures: Induction of labor and normal vaginal delivery Patient Condition at Discharge: Good Plan - Discharge Summary New Discharge Prescriptions: New Ibuprofen [Motrin] 600 mg PO Q6HR PRN #30 tab PRN Reason: Mild Pain (Scale 1 To 3) No Action Pnv No.95/Ferrous Fum/Folic AC [ Multivitamin Tablet] 1 tab PO DAILY Discharge Medication List Pnv No.95/Ferrous Fum/Folic AC [ Multivitamin Tablet] 1 tab PO DAILY 03/13/19 [History] Ibuprofen [Motrin] 600 mg PO Q6HR PRN #30 tab 11/18/21 [Rx] Follow up Appointment(s)/Referral(s): Phil Miller MD [STAFF PHYSICIAN] - 6 Weeks Patient Instructions/Handouts: Vaginal Delivery (DC) Activity/Diet/Wound Care/Special Instructions: No intercourse or anything per vagina for 6 weeks. Please call if any fever, chills, excessive vaginal bleeding, and/or abdominal pain Discharge Disposition: HOME SELF-CARE
[2021-11-18 08:37] VITALS: BP 118/81; PULSE 86; TEMP 97.6
[2021-11-18] MEDS: SENNOSIDES-DOCUSATE SODIUM 1 EACH TAB PO SCH (08:42)
== END 2021-11-18 10:36 | disposition home or self-care (01) | DRG 806 ==
LOC: FBPOP 15:17 → 4FBP 16:25
PROVIDERS: ADMIT Obstetrics & Gynecology; ATTEND Obstetrics & Gynecology
PROC: 0HB9XZZ Excision of Perineum Skin, External Approach (ICD-10-PCS; principal; 2021-11-16)
PROC: 0HQ9XZZ Repair Perineum Skin, External Approach (ICD-10-PCS; principal; 2021-11-16)
PROC: 4A0HXCZ Measurement of Products of Conception, Cardiac Rate, External Approach (ICD-10-PCS; principal; 2021-11-16)
PROC: 3E033VJ Introduction of Other Hormone into Peripheral Vein, Percutaneous Approach (ICD-10-PCS; principal; 2021-11-16)
PROC: 10907ZC Drainage of Amniotic Fluid, Therapeutic from Products of Conception, Via Natural or Artificial Opening (ICD-10-PCS; principal; 2021-11-16)
PROC: 10E0XZZ Delivery of Products of Conception, External Approach (ICD-10-PCS; principal; 2021-11-16)
PROC: BY4FZZZ Ultrasonography of Third Trimester, Single Fetus (ICD-10-PCS; principal; 2021-11-16)
DX: O36.8130 Decreased fetal movements, third trimester, not applicable or unspecified (principal); O98.32 Other infections with a predominantly sexual mode of transmission complicating childbirth; Z37.0 Single live birth; O99.824 Streptococcus B carrier state complicating childbirth; O69.1XX0 Labor and delivery complicated by cord around neck, with compression, not applicable or unspecified; O70.0 First degree perineal laceration during delivery; A63.0 Anogenital (venereal) warts; O62.3 Precipitate labor; N84.1 Polyp of cervix uteri; O34.43 Maternal care for other abnormalities of cervix, third trimester; Z3A.38 38 weeks gestation of pregnancy
CPT/HCPCS: 59025; 76819; 85025; 86850; 86900; 86901; 99213

== ENCOUNTER → 2022-05-16 | Outpatient (CLI) | payer MEDICAID ==
--- NOTE | 2022-05-16 15:33 | US ---
EXAMINATION TYPE: US kidneys/renal and bladder DATE OF EXAM: 05/16/2022 COMPARISON: NONE CLINICAL HISTORY: N20.0 calculus of kidney. Pain rt side exam limited due to bowel gas and rib shadow ing. EXAM MEASUREMENTS: Right Kidney: 9.7 x 5.0 x 3.6 cm Left Kidney: 9.2 x 5.7 x 5.1 cm Right Kidney: No hydronephrosis or masses seen Left Kidney: No hydronephrosis or masses seen Bladder: anechoic Bilateral Jets seen: Yes IMPRESSION: 1. No suspicious ultrasound abnormality bilateral kidneys.
== END | disposition home or self-care (01) ==
LOC: RADUSWWP 15:03
PROVIDERS: ATTEND Family Medicine
DX: N20.0 Calculus of kidney (principal)
CPT/HCPCS: 76770

== ENCOUNTER 2022-07-22 21:49 | Emergency (ER) | payer MEDICAID, OTHER ==
[2022-07-22 22:13] VITALS: BP 120/84; PULSE 75; RESP 18; TEMP 97.8
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
== END 2022-07-22 23:02 | disposition home or self-care (01) ==
LOC: EC 21:49
DX: S16.1XXA Strain of muscle, fascia and tendon at neck level, initial encounter (principal); Z88.1 Allergy status to other antibiotic agents; Z88.8 Allergy status to other drugs, medicaments and biological substances; V89.2XXA Person injured in unspecified motor-vehicle accident, traffic, initial encounter; Y92.410 Unspecified street and highway as the place of occurrence of the external cause
CPT/HCPCS: 99283

== ENCOUNTER 2022-07-26 17:17 | Emergency (ER) | payer MEDICAID, OTHER ==
[2022-07-26 18:11] VITALS: BP 128/81; PULSE 107; RESP 20; TEMP 998
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
== END 2022-07-26 20:14 | disposition home or self-care (01) ==
LOC: EC 17:17
DX: S06.0X0A Concussion without loss of consciousness, initial encounter (principal); Z88.8 Allergy status to other drugs, medicaments and biological substances; Z88.1 Allergy status to other antibiotic agents; R40.2410 Glasgow coma scale score 13-15, unspecified time; V43.52XA Car driver injured in collision with other type car in traffic accident, initial encounter
CPT/HCPCS: 70450; 72125; 99284

== ENCOUNTER → 2022-11-27 | Outpatient (CLI) | payer MEDICAID, OTHER ==
[2022-11-27 20:51] LABS: Anti-Smith Ab Interp Negative (Negative)
== END | disposition home or self-care (01) ==
LOC: LABWHC1 12:50
PROVIDERS: ATTEND Psychiatry & Neurology Neurology
DX: R41.89 Other symptoms and signs involving cognitive functions and awareness (principal)
CPT/HCPCS: 36415; 82306; 82607; 84207; 84425; 84443; 86038; 86039; 86235

== ENCOUNTER 2023-07-14 05:59 | Emergency (ER) | payer MEDICAID, OTHER ==
[2023-07-14] MEDS: SODIUM CHLORIDE 0.9% 1,000 ML IV STA (06:23)
[2023-07-14] MEDS: ACETAMINOPHEN TAB 500 MG TAB PO STA (06:29)
[2023-07-14] MEDS: LORazepam 2 MG/ML INJ IV STA (06:31)
[2023-07-14 06:51] LABS: Basophils # (A) 0.1 k/uL (0-0.2); Basophils % (A) 0 %; Eosinophils # (A) 0.1 k/uL (0-0.7); Eosinophils % (A) 1 %; HCT 45.1 % (34.0-46.0); HGB 15.4 gm/dL (11.4-16.0); Lymphocytes # (A) 2.9 k/uL (1.0-4.8); Lymphocytes % (A) 16 %; MCH 29.3 pg (25.0-35.0); MCHC 34.1 g/dL (31.0-37.0); Mean Platelet Volume 7.1; Monocytes # (A) 0.7 k/uL (0-1.0); Monocytes % (A) 4 %; Neutrophils # (A) 14.8 k/uL (1.3-7.7); Neutrophils % (A) 79 %; Platelet Count 452 k/uL (150-450); RBC 5.24 m/uL (3.80-5.40); RDW 11.8 % (11.5-15.5); WBC 18.7 k/uL (3.8-10.6)
[2023-07-14 07:10] LABS: ALT 15 U/L (4-34); AST 20 U/L (14-36); African American GFR (CKD) >90 (>60 ml/min/1.73 sqM); Albumin 4.6 g/dL (3.5-5.0); Alkaline Phosphatase 110 U/L (38-126); Anion Gap 15 mmol/L; Blood Urea Nitrogen 17 mg/dL (7-17); Calcium 9.9 mg/dL (8.4-10.2); Carbon Dioxide 18 mmol/L (22-30); Chloride 104 mmol/L (98-107); Glucose 109 mg/dL (74-99); Magnesium 1.4 mg/dL (1.6-2.3); Non-African American GFR(CKD) >90 (>60 ml/min/1.73 sqM); Potassium 3.6 mmol/L (3.5-5.1); Sodium 137 mmol/L (137-145); Total Bilirubin 0.7 mg/dL (0.2-1.3); Total Protein 7.6 g/dL (6.3-8.2)
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
[2023-07-14 08:51] VITALS: BP 108/56; PULSE 103; RESP 20; TEMP 98.8
--- NOTE | 2023-07-14 08:54 | CT ---
EXAMINATION TYPE: CT brain wo con CT DLP: 1095.1 mGycm, Automated exposure control for dose reduction was used. DATE OF EXAM: 07/14/2023 8:02 AM COMPARISON: . CLINICAL INDICATION:Female, 32 years old with history of severe headache, Severe headache TECHNIQUE: Brain: Axial CT images of the brain were obtained with coronal and sagittal reformats created and rev iewed. Contrast used: None. Oral contrast used: None. FINDINGS: Brain: Extra-axial spaces: No abnormal extra-axial fluid collections. Ventricular system: Within normal limits Cerebral parenchyma: No acute intraparenchymal hemorrhage or mass effect. The keane-white junction is well differentiated. Cerebellum: Unremarkable. Mass effect: No evidence of midline shift. Intracranial vasculature: unremarkable Soft tissues: Normal. Calvarium/osseous structures: No depressed skull fracture. Paranasal sinuses and mastoid air cells: Severe scattered paranasal sinus disease. Visualized orbits: Orbital contents are intact. IMPRESSION: 1. No acute intracranial process. 2. Severe paranasal sinus disease.
[2023-07-14] MEDS: cefTRIAXone IN SWFI 1,000 MG/10 ML SYRINGE IVP STA (09:22)
[2023-07-14] MEDS: AZITHROMYCIN 250 MG TAB PO STA (09:23)
== END 2023-07-14 09:33 | disposition home or self-care (01) ==
LOC: EC 05:59
DX: J18.9 Pneumonia, unspecified organism (principal); R06.4 Hyperventilation; R29.0 Tetany; R55 Syncope and collapse; R00.0 Tachycardia, unspecified; Z88.8 Allergy status to other drugs, medicaments and biological substances; Z88.1 Allergy status to other antibiotic agents
CPT/HCPCS: 36415; 93005; 87651; 80053; 83735; 84484; 85025; 87636; 71046; 70450; 99284; 96374; 96375; 96361; J2060; J0696

== ENCOUNTER 2023-07-16 13:27 | Emergency (ER) | payer MEDICAID, OTHER ==
--- NOTE | 2023-07-16 13:49 | ED ---
General Adult HPI - General Chief complaint: Shortness of Breath Stated complaint: SOB Time Seen by Provider: 07/16/23 13:32 Source: patient, RN notes reviewed Mode of arrival: ambulatory Limitations: no limitations - History of Present Illness Initial comments: Patient is a pleasant 32-year-old female present to the emergency department with concerns for difficulty breathing. Symptoms have mostly progressed over the past couple of days. Patient does have cough, nonproductive. Patient does have some upper respiratory congestion with yellow nasal expulsions. Patient did have a fever 2 days ago. Patient has been having some increased anxiety ag ain today. No leg pain or calf pain or leg swelling - Related Data Home Medications Medication Instructions Recorded Confirmed Pnv No.95/Ferrous Fum/Folic AC 1 tab PO DAILY 03/13/19 11/16/21 [ Multivitamin Tablet] Previous Rx's Medication Instructions Recorded Ibuprofen [Motrin] 600 mg PO Q6HR PRN #30 tab 11/18/21 Cyclobenzaprine [Flexeril] 5 mg PO BID PRN 5 Days #10 tablet 07/26/22 Azithromycin [Zithromax Z Pack] 0 tab PO DIRECTED #6 tab 07/14/23 Albuterol Inhaler [Ventolin Hfa 2 puff INHALATION Q4HR PRN #1 each 07/16/23 Inhaler] Allergies Allergy/AdvReac Type Severity Reaction Status Date / Time ondansetron [From Zofran] Allergy Rash/Hives Verified 07/16/23 13:30 alcohol AdvReac Nausea & Verified 07/16/23 13:30 Vomiting metronidazole [From Flagyl] AdvReac Nausea & Verified 07/16/23 13:30 Vomiting Review of Systems ROS Statement: Those systems with pertinent positive or pertinent negative responses have been documented in the HPI. ROS Other: All systems not noted in ROS Statement are negative. Constitutional: Reports: as per HPI Eyes: Denies: eye pain ENT: Denies: ear pain Respiratory: Reports: as per HPI, cough, dyspnea Endocrine: Denies: fatigue Gastrointestinal: Denies: abdominal pain Musculoskeletal: Denies: back pain Past Medical History Past Medical History: No Reported History History of Any Multi-Drug Resistant Organisms: None Reported Past Surgical History: Adenoidectomy, Ear Surgery, Tonsillectomy Additional Past Surgical History / Comment(s): toe Past Anesthesia/Blood Transfusion Reactions: No Reported Reaction Past Psychological History: No Psychological Hx Reported Smoking Status: Never smoker Past Alcohol Use History: None Reported Past Drug Use History: None Reported - Past Family History Father Family Medical History: Hypertension General Exam Limitations: no limitations General appearance: alert, in no apparent distress Head exam: Present: normocephalic Eye exam: Present: normal appearance Neck exam: Present: normal inspection Respiratory exam: Present: rhonchi Cardiovascular Exam: Present: tachycardia GI/Abdominal exam: Present: soft. Absent: tenderness Extremities exam: Present: normal inspection. Absent: pedal edema, calf tenderness Neurological exam: Present: alert Psychiatric exam: Present: normal affect, normal mood Skin exam: Present: normal color Course Vital Signs 07/16/23 07/16/23 07/16/23 13:28 14:10 14:42 Temperature 97.2 F L Pulse Rate 107 H 91 79 Respiratory 26 H 20 18 Rate Blood Pressure 128/77 118/76 O2 Sat by Pulse 97 98 Oximetry 07/16/23 14:50 Temperature Pulse Rate 74 Respiratory 18 Rate Blood Pressure O2 Sat by Pulse Oximetry EKG Findings - EKG Results: EKG: interpreted by ERMD, sinus rhythm, normal axis, normal QRS, normal ST/T Medical Decision Making - Medical Decision Making Was pt. sent in by a medical professional or institution (, PA, PATIENT SAFETY ATTENDANT, urgent care, hospital, or snf...) When possible be specific @ -No Did you speak to anyone other than the patient for history (EMS, parent, family, police, friend...)? What history was obtained from this source @ -No Did you review nursing and triage notes (agree or disagree)? Why? @ -I reviewed and agree with nursing and triage notes Were old charts reviewed (outside hosp., previous admission, EMS record, old EKG, old radiological studies, urgent care reports/EKG's, snf records)? Report findings @ -Previous chest x-ray reviewed Differential Diagnosis (chest pain, altered mental status, abdominal pain women, abdominal pain men, vaginal bleeding, weakness, fever, dyspnea, syncope, headache, dizziness, GI bleed, back pain, seizure, CVA, palpatations, mental health, musculoskeletal)? @ -Differential Dyspnea: Coronary syndrome, arrhythmia, tamponade, asthma, COPD, pulmonary embolism, pneumonia, pneumothorax, pulmonary effusion, anaphylaxis, diabetic ketoacidosis, flailed chest, pulmonary contusion, diaphragmatic rupture, anemia, neuromuscular, this is not meant to be an all-inclusive list. EKG interpreted by me (3pts min.). @ -As above X-rays interpreted by me (1pt min.). @ -Chest x-ray shows no acute process CT interpreted by me (1pt min.). @ -None done U/S interpreted by me (1pt. min.). @ -None done What testing was considered but not performed or refused? (CT, X-rays, U/S, labs)? Why? @ -None What meds were considered but not given or refused? Why? @ -None Did you discuss the management of the patient with other professionals (professionals i.e. , PA, PATIENT SAFETY ATTENDANT, lab, RT, psych nurse, social insurance administrator, director targeted marketing, teacher, president and chief executive officer, supervisor case loading)? Give summary @ -No Was smoking cessation discussed for >3mins.? @ -No Was critical care preformed (if so, how long)? @ -No Were there social determinants of health that impacted care today? How? (Homelessness, low income, unemployed, alcoholism, drug addiction, transportation, low edu. Level, literacy, decrease access to med. care, [facility], rehab)? @ -No Was there de-escalation of care discussed even if they declined (Discuss DNR or withdrawal of care, Hospice)? DNR status @ -No What co-morbidities impacted this encounter? (DM, HTN, Smoking, COPD, CAD, Cancer, CVA, ARF, Chemo, Hep., AIDS, mental health diagnosis, sleep apnea, morbid obesity)? @ -None Was patient admitted / discharged? Hospital course, mention meds given and route, prescriptions, significant lab abnormalities, going to OR and other pertinent info. @ -Patient reevaluated and feeling much better. Vital signs improved. Patient is comfortable with discharge home. Patient will be discharged with inhaler. Undiagnosed new problem with uncertain prognosis? @ -No Drug Therapy requiring intensive monitoring for toxicity (Heparin, Nitro, Insulin, Cardizem)? @ -No Were any procedures done? @ -No Diagnosis/symptom? @ -Bronchitis Acute, or Chronic, or Acute on Chronic? @ -Acute Uncomplicated (without systemic symptoms) or Complicated (systemic symptoms)? @ -Complicated with abnormal vital signs on arrival Side effects of treatment? @ -No Exacerbation, Progression, or Severe Exacerbation? @ -No Poses a threat to life or bodily function? How? (Chest pain, USA, DC, pneumonia, PE, COPD, DKA, ARF, appy, cholecystitis, CVA, Diverticulitis, Homicidal, Suicidal, threat to staff... and all critical care pts) @ -No - Lab Data Result diagrams: 07/16/23 14:05 07/16/23 14:05 Lab Results 07/16/23 07/16/23 07/16/23 Range/Units 14:05 14:05 14:05 WBC 11.2 H (3.8-10.6) k/uL RBC 5.60 H (3.80-5.40) m/uL Hgb 16.8 H (11.4-16.0) gm/dL Hct 47.4 H (34.0-46.0) % MCV 84.6 (80.0-100.0) fL MCH 30.0 (25.0-35.0) pg MCHC 35.5 (31.0-37.0) g/dL RDW 12.0 (11.5-15.5) % Plt Count 451 H (150-450) k/uL MPV 7.4 Neutrophils % 66 % Lymphocytes % 27 % Monocytes % 4 % Eosinophils % 1 % Basophils % 1 % Neutrophils # 7.4 (1.3-7.7) k/uL Lymphocytes # 3.0 (1.0-4.8) k/uL Monocytes # 0.4 (0-1.0) k/uL Eosinophils # 0.1 (0-0.7) k/uL Basophils # 0.1 (0-0.2) k/uL PT 9.8 L (10.0-12.5) sec INR 0.9 (<1.2) APTT 24.6 (22.0-30.0) sec D-Dimer 0.30 (<0.60) mg/L FEU Sodium 142 (137-145) mmol/L Potassium 3.9 (3.5-5.1) mmol/L Chloride 109 H (98-107) mmol/L Carbon Dioxide 18 L (22-30) mmol/L Anion Gap 15 mmol/L BUN 15 (7-17) mg/dL Creatinine 0.48 L (0.52-1.04) mg/dL Est GFR (CKD-EPI)AfAm >90 (>60 ml/min/1.73 sqM) Est GFR (CKD-EPI)NonAf >90 (>60 ml/min/1.73 sqM) Glucose 93 (74-99) mg/dL Plasma Lactic Acid Hakeem (0.7-2.0) mmol/L Calcium 10.3 H (8.4-10.2) mg/dL Magnesium 1.8 (1.6-2.3) mg/dL Total Bilirubin 0.5 (0.2-1.3) mg/dL AST 24 (14-36) U/L ALT 14 (4-34) U/L Alkaline Phosphatase 88 (38-126) U/L Total Protein 8.1 (6.3-8.2) g/dL Albumin 4.8 (3.5-5.0) g/dL Influenza Type A (PCR) (Not Detectd) Influenza Type B (PCR) (Not Detectd) RSV (PCR) (Not Detectd) SARS-CoV-2 (PCR) (Not Detectd) 07/16/23 07/16/23 Range/Units 14:05 14:05 WBC (3.8-10.6) k/uL RBC (3.80-5.40) m/uL Hgb (11.4-16.0) gm/dL Hct (34.0-46.0) % MCV (80.0-100.0) fL MCH (25.0-35.0) pg MCHC (31.0-37.0) g/dL RDW (11.5-15.5) % Plt Count (150-450) k/uL MPV Neutrophils % % Lymphocytes % % Monocytes % % Eosinophils % % Basophils % % Neutrophils # (1.3-7.7) k/uL Lymphocytes # (1.0-4.8) k/uL Monocytes # (0-1.0) k/uL Eosinophils # (0-0.7) k/uL Basophils # (0-0.2) k/uL PT (10.0-12.5) sec INR (<1.2) APTT (22.0-30.0) sec D-Dimer (<0.60) mg/L FEU Sodium (137-145) mmol/L Potassium (3.5-5.1) mmol/L Chloride (98-107) mmol/L Carbon Dioxide (22-30) mmol/L Anion Gap mmol/L BUN (7-17) mg/dL Creatinine (0.52-1.04) mg/dL Est GFR (CKD-EPI)AfAm (>60 ml/min/1.73 sqM) Est GFR (CKD-EPI)NonAf (>60 ml/min/1.73 sqM) Glucose (74-99) mg/dL Plasma Lactic Acid Hakeem 2.5 H* (0.7-2.0) mmol/L Calcium (8.4-10.2) mg/dL Magnesium (1.6-2.3) mg/dL Total Bilirubin (0.2-1.3) mg/dL AST (14-36) U/L ALT (4-34) U/L Alkaline Phosphatase (38-126) U/L Total Protein (6.3-8.2) g/dL Albumin (3.5-5.0) g/dL Influenza Type A (PCR) Not Detected (Not Detectd) Influenza Type B (PCR) Not Detected (Not Detectd) RSV (PCR) Not Detected (Not Detectd) SARS-CoV-2 (PCR) Not Detected (Not Detectd) Disposition Clinical Impression: Bronchitis Disposition: HOME SELF-CARE Condition: Stable Instructions (If sedation given, give patient instructions): Acute Bronchitis (ED) Additional Instructions: Prescription sent to pharmacy. Please follow-up with primary care physician in the next day or 2 for recheck. Return for difficulty breathing, uncontrolled fevers, worsening or changing symptoms or other concerns. Prescriptions: Albuterol Inhaler [Ventolin Hfa Inhaler] 2 puff INHALATION Q4HR PRN #1 each PRN Reason: Dyspnea Is patient prescribed a controlled substance at d/c from ED?: No Referrals: Linette Yarbrough DO [Primary Care Provider] - 1-2 days Time of Disposition: 15:21
[2023-07-16 13:59] VITALS: TEMP 97.2
[2023-07-16] MEDS: LORazepam 2 MG/ML INJ IV STA (14:14)
[2023-07-16 14:29] LABS: Basophils # (A) 0.1 k/uL (0-0.2); Basophils % (A) 1 %; Eosinophils # (A) 0.1 k/uL (0-0.7); Eosinophils % (A) 1 %; HCT 47.4 % (34.0-46.0); HGB 16.8 gm/dL (11.4-16.0); Lymphocytes % (A) 27 %; MCHC 35.5 g/dL (31.0-37.0); MCV 84.6 fL (80.0-100.0); Mean Platelet Volume 7.4; Monocytes # (A) 0.4 k/uL (0-1.0); Monocytes % (A) 4 %; Neutrophils # (A) 7.4 k/uL (1.3-7.7); Neutrophils % (A) 66 %; Platelet Count 451 k/uL (150-450); WBC 11.2 k/uL (3.8-10.6)
[2023-07-16 14:30] LABS: ALT 14 U/L (4-34); African American GFR (CKD) >90 (>60 ml/min/1.73 sqM); Albumin 4.8 g/dL (3.5-5.0); Anion Gap 15 mmol/L; Blood Urea Nitrogen 15 mg/dL (7-17); Calcium 10.3 mg/dL (8.4-10.2); Carbon Dioxide 18 mmol/L (22-30); Chloride 109 mmol/L (98-107); Glucose 93 mg/dL (74-99); Non-African American GFR(CKD) >90 (>60 ml/min/1.73 sqM); Sodium 142 mmol/L (137-145); Total Bilirubin 0.5 mg/dL (0.2-1.3); Total Protein 8.1 g/dL (6.3-8.2)
[2023-07-16 14:32] LABS: INR 0.9 (<1.2); Partial Thromboplastin Time 24.6 sec (22.0-30.0); Prothrombin Time 9.8 sec (10.0-12.5)
--- NOTE | 2023-07-16 14:33 | XR ---
EXAMINATION TYPE: XR chest 2V DATE OF EXAM: 07/16/2023 COMPARISON: 07/14/2023 TECHNIQUE: PA and lateral views submitted. HISTORY: Difficulty breathing FINDINGS: The lungs are clear and there is no pneumothorax, pleural effusion, or focal pneumonia. Heart size normal and no overt failure. Osseous structures intact. IMPRESSION: 1. No acute process.
[2023-07-16] MEDS: IPRATROPIUM-ALBUTEROL 3 ML NEB INHALATION STA (14:40)
[2023-07-16 14:42] LABS: AST 24 U/L (14-36); Alkaline Phosphatase 88 U/L (38-126); Magnesium 1.8 mg/dL (1.6-2.3); Potassium 3.9 mmol/L (3.5-5.1)
[2023-07-16] MEDS: SODIUM CHLORIDE 0.9% 500 ML 500 ML IV STA (15:13)
[2023-07-16 16:53] VITALS: BP 103/68; PULSE 94; RESP 16
== END 2023-07-16 16:44 | disposition home or self-care (01) ==
LOC: EC 13:27
DX: J40 Bronchitis, not specified as acute or chronic (principal); Z88.8 Allergy status to other drugs, medicaments and biological substances
CPT/HCPCS: 36415; 94640; 93005; 85379; 80053; 83605; 83735; 85025; 85610; 85730; 87636; 71046; 99285; 96374; 96361; J2060

== ENCOUNTER → 2023-08-22 | Outpatient (CLI) | payer MEDICAID ==
--- NOTE | 2023-08-22 19:17 | CA ---
Transthoracic Echo Report Name: Maria Del Carmen Gentile Age: 33 Gender: F : 1990 Exam Date: 08/22/2023 16:04 Exam Location: [facility] Ht (in): 62 Wt (lb): 173 Ordering Physician: Иван Cheng DO Attending/Referring Phys: Java Swing Developer Samira Ryan RCS Procedure CPT: Indications: R07.9 CHEST PAIN, UNSPECIFIED Cardiac Hx: Technical Quality: Good Contrast 1: Total Dose (mL): Contrast 2: Total Dose (mL): MEASUREMENTS (Male / Female) Normal Values 2D ECHO LV Diastolic Diameter PLAX 4.1 cm 4.2 - 5.9 / 3.9 - 5.3 cm LV Systolic Diameter PLAX 3.2 cm IVS Diastolic Thickness 1.0 cm 0.6 - 1.0 / 0.6 - 0.9 cm LVPW Diastolic Thickness 0.7 cm 0.6 - 1.0 / 0.6 - 0.9 cm LV Relative Wall Thickness 0.4 RV Internal Dim ED PLAX 3.1 cm LVOT Diameter 1.9 cm Aortic Root Diameter 2.5 cm LV Diastolic Volume MOD BP 123.2 cm??? 67 - 155 / 56 - 104 cm??? LV Systolic Volume MOD BP 49.0 cm??? 22 - 58 / 19 - 49 cm??? LV Ejection Fraction MOD BP 60.2 % >= 55 % LV Cardiac Index MOD BP 2995.9 cm???/min???m??? LV Diastolic Volume MOD 4C 126.6 cm??? LV Systolic Volume MOD 4C 47.4 cm??? LV Ejection Fraction MOD 4C 62.5 % LV Cardiac Index MOD 4C 3192.8 cm???/min???m??? LV Diastolic Length 4C 8.9 cm LV Systolic Length 4C 7.1 cm LV Diastolic Volume MOD 2C 119.4 cm??? LV Systolic Volume MOD 2C 49.8 cm??? LV Ejection Fraction MOD 2C 58.3 % LV Cardiac Index MOD 2C 2806.5 cm???/min???m??? LV Diastolic Length 2C 8.8 cm LV Systolic Length 2C 7.2 cm Ascending Aorta Diameter 2.8 cm DOPPLER AV Peak Velocity 137.9 cm/s AV Peak Gradient 7.6 mmHg AV Mean Velocity 96.3 cm/s AV Mean Gradient 4.2 mmHg AV Velocity Time Integral 29.5 cm LVOT Peak Velocity 121.8 cm/s LVOT Peak Gradient 5.9 mmHg LVOT Velocity Time Integral 25.1 cm LVOT Stroke Volume 72.0 cm??? LVOT Stroke Volume Index 40.1 ml/m??? LVOT Cardiac Index 2905.1 cm???/min???m??? AV Area Cont Eq vti 2.4 cm??? AV Area Cont Eq pk 2.5 cm??? Mitral E Point Velocity 72.5 cm/s Mitral A Point Velocity 50.7 cm/s Mitral E to A Ratio 1.4 MV Deceleration Time 218.2 ms MV E' Velocity 10.0 cm/s Mitral E to MV E' Ratio 7.2 TR Peak Velocity 207.8 cm/s TR Peak Gradient 17.3 mmHg Right Atrial Pressure 5.0 mmHg Pulmonary Artery Systolic Pressu 22.3 mmHg Right Ventricular Systolic Press 22.3 mmHg PV Peak Velocity 88.7 cm/s PV Peak Gradient 3.1 mmHg FINDINGS Left Ventricle Left ventricular ejection fraction is estimated at 55-60 %. Left ventricular cavity size normal. Left ventricular wall thickness normal. No obvious regional wall motion abnormalities. Right Ventricle Normal right ventricular size and function. Right ventricular systolic pressure within normal limits. Right Atrium Normal right atrial size. Left Atrium Normal left atrial size. Mitral Valve Structurally normal mitral valve. No mitral stenosis, regurgitation or prolapse. Aortic Valve Trileaflet aortic valve. No aortic valve stenosis or regurgitation. Tricuspid Valve Structurally normal tricuspid valve. No tricuspid stenosis. Trace tricuspid regurgitation. Pulmonic Valve Structurally normal pulmonic valve. No pulmonic stenosis. Trace pulmonic regurgitation. Pericardium No pericardial effusion. Aorta Normal size aortic root and proximal ascending aorta. CONCLUSIONS Preserved LV size and systolic function Previewed by: Dr. Glen Loaiza MD (Electronically Signed) Final Date: 22 August 2023 19:17
== END | disposition home or self-care (01) ==
LOC: RADECHMAIN 15:58
PROVIDERS: ATTEND Family Medicine
DX: R07.9 Chest pain, unspecified (principal)
CPT/HCPCS: 93306

== ENCOUNTER → 2024-01-19 | Outpatient (CLI) | payer MEDICAID | END | disposition home or self-care (01) | LOC: LABWHC1 15:18 | PROVIDERS: ATTEND Dermatology MOHS-Micrographic Surgery | DX: D69.0 Allergic purpura (principal); L50.8 Other urticaria | CPT/HCPCS: 36415; 82785; 86160; 86162 ==